=== PATIENT | male | born 1980 | race Caucasian/White ===

== ENCOUNTER 2024-08-29 10:24 | Inpatient (IN) | payer OTHER, SELFPAY ==
[2024-08-29] VITALS (7 sets, daily range): BP systolic 135–175; BP diastolic 79–95; PULSE 109–129; RESP 18–24; TEMP 36.5–38.2; O2SAT 96–100; BMI 43.3
--- NOTE | ~2024-08-29 | CT_ITS ---
EXAMINATION: CT abdomen pelvis w con DATE: 08/29/2024 14:02 INDICATION: Small bowel obstruction. TECHNIQUE: Computed tomography (CT) of the abdomen and pelvis was performed with 100 mL Omnipaque 350 intravenous contrast. Automated exposure control and iterative reconstruction technique were employe d. The dose-length product was 1624.36 mGy-cm. COMPARISON: Abdomen radiographs 08/29/24 FINDINGS: The visualized portions of the lung bases demonstrate mild atelectasis. No pleural effusion . The heart size is normal. No pericardial effusion. The liver, spleen, pancreas, adrenal glands, and left kidney are normal. There is a 1.7 cm cyst in right kidney. There are changes of cholecystectomy . The appendix is normal. The stomach is distended. There are multiple dilated loops of small bowel w ith gradual transition to decompressed bowel near the changes of ventral hernia repair. There is a álvarez praumbilical ventral hernia containing fat superior to the mesh. There are no pathologically enlarged lymph nodes. There is no free intraperitoneal fluid. There is mild thoracic and lumbar spondylosis. IMPRESSION: 1. Dilated small bowel without focal transition point, consistent with adynamic ileus versus partial obstruction. 2. Supraumbilical ventral hernia containing fat. Reviewed, dictated and finalized at location B. L TRADES INSTRUCTOR
--- NOTE | ~2024-08-29 | XR_ITS ---
EXAMINATION: XR abdomen/kub 1V DATE: 08/29/2024 13:28 INDICATION: Abdominal pain. Nausea and vomiting. TECHNIQUE: A supine view of the abdomen on 2 radiographs was obtained. COMPARISON: None. FINDINGS: There are multiple dilated loops of small bowel. The stomach is distended. The colon is nor mal in caliber. Surgical clips in the right upper quadrant are likely from cholecystectomy. Surgical clips may be from hernia repair. IMPRESSION: 1. Dilated small bowel, consistent with small bowel obstruction versus adynamic ileus. Reviewed, dictated and finalized at location B. [employer] ARCHITECT
--- NOTE | ~2024-08-29 | XR_ITS ---
EXAMINATION: XR abdomen obstructive series DATE: 08/30/2024 08:06 INDICATION: Abdominal pain. Dilated bowel. TECHNIQUE: Supine and upright views of the abdomen on 4 radiographs were obtained. COMPARISON: CT abdomen pelvis 08/29/2024 FINDINGS: There are no dilated loops of bowel. There is no free intraperitoneal gas. The nasogastric tube tip is in the stomach. There are surgical clips from ventral hernia repair. Surgical clips in th e right upper quadrant are likely from cholecystectomy. IMPRESSION: 1. Nonobstructive bowel gas pattern. Reviewed, dictated and finalized at location B. ITECTURE DEPARTMENT CHAIR
--- NOTE | ~2024-08-29 | XR_ITS ---
Exam: Abdomen 1V HISTORY: Check NG placement COMPARISON: None. TECHNIQUE: Supine images of the lower chest and upper abdomen FINDINGS: Nasogastric tube extends into the left upper quadrant, presumably within the stomach. IMPRESSION: Nasogastric tube in good position and ready for immediate use. Reviewed, dictated and finalized at location A. INE STEMMER
[2024-08-29 10:56] LABS: Basophils Percent Auto 0.2 % (0.2-1.2); Eosinophils Percent Auto 0.1 % (0-4.4); Hematocrit 50.1 % (42.0-52.0); Immature Granulocyte Absolute 0.05 K/mm3 (0.00-0.031); Immature Granulocyte Percent A 0.4 % (0-0.5); Lymphocytes Absolute Auto 0.38 K/mm3 (0.9-3.2); Lymphocytes Percent Auto 3.3 % (18.3-44.2); Mean Corpuscular HGB Conc 31.9 g/dl (32-36); Mean Corpuscular Hemoglobin 26.2 pg (26-34); Mean Platelet Volume 9.5 fl (7.4-10.4); Monocytes Absolute Auto 0.8 K/mm3 (0.1-0.6); Neutrophils Absolute Auto 10.2 K/mm3 (1.3-6.7); Platelet Count Result 278 k/mm3 (150-375); Red Blood Count 6.11 M/mm3 (4.6-6.20); Red Cell Distribution Width 16.5 % (11.5-14.5); White Blood Count 11.4 K/mm3 (4.5-10.0)
--- NOTE | 2024-08-29 11:05 | PC.NURSE ---
Pt attempted to give urine sample but was unable to go
[2024-08-29 11:06] LABS: Alanine Aminotransferase 30 U/L (6-50); Albumin Level 4.7 g/dL (3.5-5.1); Alkaline Phosphatase 60 U/L (38-126); Anion Gap 15 mmol/L (4-12); Aspartate Amino Transferase 31 U/L (17-59); Bilirubin,Total 1.1 mg/dL (0.2-1.3); Blood Urea Nitrogen 21 mg/dL (9-20); Calcium 8.8 mg/dL (8.4-10.2); Carbon Dioxide 20 mmol/L (22-30); Chloride 104 mmol/L (98-107); Estimated CRCL calculation 128 ml/min; Estimated Glomerular Filt Rate > 60; Glucose 161 mg/dL (65-110); Lipase 36 U/L (23-300); Potassium 4.2 mmol/L (3.4-5.0); Sodium 139 mmol/L (137-145)
[2024-08-29] MEDS: ONDANSETRON INJ 4 MG/2 ML VIAL IV PUSH ×3 (11:13→23:06)
[2024-08-29] MEDS: SODIUM CHLORIDE 0.9% IV 1,000 ML 999 ML IV CONT ×3 (11:13→15:40)
[2024-08-29] MEDS: DICYCLOMINE HCL 10 MG CAPSULE 20 MG PO (11:13)
[2024-08-29] MEDS: FAMOTIDINE 20 MG/2 ML VIAL IV PUSH (11:13)
--- NOTE | 2024-08-29 11:22 | ED_ITS ---
HPI - Nausea/Vomiting/Diarrhea General Chief complaint: Nausea/Vomiting/Diarrhea <Leti Berry APRN - Last Filed: 08/29/24 17:13> Stated complaint: flu symptoms <Leti Berry APRN - Last Filed: 08/29/24 17:13> Time Seen by Provider: 08/29/24 10:36 <Leti Berry APRN - Last Filed: 08/29/24 17:13> History of Present Illness HPI Narrative: Patient is a 44-year-old male who presents to the ER with complaints of abdominal pain, nausea, vomiting, diarrhea this started last night at approximately 9:00 p.m. He reports he was awake every 30-60 minutes last night vomiting. Patient reports his son was recently ill with similar symptoms. He currently endorses abdominal pain, weakness, dizziness. Patient reports he has a history diabetes and GERD. He denies any chest pain, shortness off breath, wheezing, recent fevers, urinary symptoms. <Leti Berry APRN - Last Filed: 08/29/24 17:13> Related Data Home medications: Home Medications ?Medication ?Instructions ?Recorded ?Confirmed ?Last Taken ?Type ferrous sulfate 325 mg (65 mg 325 mg PO DAILY 10/03/21 08/29/24 Unknown History iron) tablet <Leti Berry APRN - Last Filed: 08/29/24 17:13> Allergies/Adverse reactions: Allergies Allergy/AdvReac Type Severity Reaction Status Date / Time No Known Allergies Allergy Verified 08/29/24 11:14 <Leti Berry APRN - Last Filed: 08/29/24 17:13> Review of Systems 2 Review of Systems: All systems reviewed & are unremarkable except as noted in HPI and below <Leti Berry APRN - Last Filed: 08/29/24 17:13> PMFSH Past Medical History Medical History: Medical History IBS (irritable bowel syndrome) Chronic GERD Allergies Obesity due to excess calories History of postoperative nausea and vomiting Anesthesia complication Hx of difficulty waking up after anesthesia Sleep apnea Low iron Neck pain Nerve pain Mild acid reflux Anxiety <Leti Berry APRN - Last Filed: 08/29/24 17:13> Surgical History Surgical History: Surgical History History of cholecystectomy (~01/04/13) History of hernia repair (~09/18/17) History of hernia repair (~06/09/18) <Leti Berry, CLIENT PROJECT COORDINATOR - Last Filed: 08/29/24 17:13> Family History Family History: Family History Grandparent Brain cancer <Leti Berry, CLIENT PROJECT COORDINATOR - Last Filed: 08/29/24 17:13> Social History Social History: Social History Smoking status: Never smoker Lack of Transportation: No Lack of Food: Never True Current Housing: I Have Housing Concerned About Future Housing: No Difficulty Paying Gas/Electric Bills: No Difficulty Paying for Meds: No Currently Unemployed: No Education: Bachelor's Degree Difficulty w/ Childcare or Family Care: No Living arrangements: with family Occupation/Education: occupation Additional occupation/education comments: [employer] Gender identity (if verbalized by the patient): Male <Leti Berry, CLIENT PROJECT COORDINATOR - Last Filed: 08/29/24 17:13> Exam 2 Narrative: GENERAL: Well appearing, obese, non-toxic, in no acute distress. HEAD: Normocephalic, atraumatic. NECK: Supple. No adenopathy, no masses. RESPIRATORY: Airway patent, respirations nonlabored. Clear to auscultation bilaterally, no rales, rhonchi, wheezing. CARDIOVASCULAR: Regular rate and rhythm without murmurs, rubs, or gallops. Peripheral pulses 2+ and equal bilaterally. ABDOMINAL: Soft, nontender, nondistended, no hepatosplenomegaly. Normoactive BS. MUSCULOSKELETAL: Moves all extremities. Strength/ROM intact without gross deformities. SKIN: Warm, dry, normal color. No rashes. NEURO: A&O X3. Speech clear. Cranial nerves II-XII grossly intact. Steady gait. No ataxic movements. PSYCHIATRIC: Appropriate mood and affect. Normal interaction. <Leti Berry, CLIENT PROJECT COORDINATOR - Last Filed: 08/29/24 17:13> Course OVEN STRIPPER/PA Physician Supervision For this patient encounter, I reviewed the OVEN STRIPPER or PA documentation, treatment plan, and medical decision making; and I had [id number] time with this patient. <Gabe Georges MD - Last Filed: 08/29/24 18:43> Vital Signs Vital signs: Vital Signs Temperature 97.7 F 08/29/24 10:37 Pulse Rate 109 H 08/29/24 10:37 Respiratory Rate 18 08/29/24 10:37 Blood Pressure 174/85 H 08/29/24 10:37 Pulse Oximetry 97 08/29/24 10:37 Oxygen Delivery Room Air 08/29/24 10:37 Temperature 98.9 F 08/29/24 16:48 Pulse Rate 117 H 08/29/24 16:38 Respiratory Rate 18 08/29/24 16:38 Blood Pressure 175/88 H 08/29/24 16:38 Pulse Oximetry 100 08/29/24 16:38 Oxygen Delivery Room Air 08/29/24 10:37 <Leti Berry, CLIENT PROJECT COORDINATOR - Last Filed: 08/29/24 17:13> Vital Signs Temperature 97.7 F 08/29/24 10:37 Pulse Rate 109 H 08/29/24 10:37 Respiratory Rate 18 08/29/24 10:37 Blood Pressure 174/85 H 08/29/24 10:37 Pulse Oximetry 97 08/29/24 10:37 Oxygen Delivery Room Air 08/29/24 10:37 Temperature 98.9 F 08/29/24 16:48 Pulse Rate 117 H 08/29/24 16:38 Respiratory Rate 18 08/29/24 16:38 Blood Pressure 175/88 H 08/29/24 16:38 Pulse Oximetry 100 08/29/24 16:38 Oxygen Delivery Room Air 08/29/24 10:37 <Gabe Georges MD - Last Filed: 08/29/24 18:43> MDM - Nausea/Vomiting/Diarrhea MDM Narrative Medical decision making narrative: Patient is a 44-year-old male who presents to the ER with complaints of abdominal pain, nausea, vomiting, diarrhea this started last night at approximately 9:00 p.m. He reports he was awake every 30-60 minutes last night vomiting. Patient reports his son was recently ill with similar symptoms. He currently endorses abdominal pain, weakness, dizziness. Patient reports he has a history diabetes and GERD. He denies any chest pain, shortness off breath, wheezing, recent fevers, urinary symptoms. Labs Ordered: CBC, CMP, lipase, influenza/RSV/COVID swab, UA Imaging Ordered: KUB, CT abdomen pelvis Results: Patient's abdominal CT scan showed 1. Dilated small bowel without focal transition point, consistent with adynamic ileus versus partial obstruction. 2. Supraumbilical ventral hernia containing fat. Diagnosis: Adynamic ileus versus partial obstruction of small bowel Consults: General surgery-Dr. Palma advised that it will surgery could be consulted if patient is admitted to the hospital. Patient Education/Shared MDM: Results of KUB and CT scan shared with the patient. It is recommended patient be admitted to the hospital for IV rehydration. 1520-Spoke with hospitalist who agreed with pt's admission to the hospital. She advised patient receive another 1L Normal Saline IV bolus and have an NG placed to low intermittent suction. Spoke with patient and his who verbalized understanding and are in agreement with plan of admission. <Leti Berry APRN - Last Filed: 08/29/24 17:13> Differential Diagnosis Differential diagnosis: Likely food poisoning, gastroenteritis, drug-induced nausea and vomiting, dehydration and other (small bowel obstruction) <Leti Berry APRN - Last Filed: 08/29/24 17:13> Lab Data Attestation: I reviewed the patient's lab results. <Leti Berry APRN - Last Filed: 08/29/24 17:13> Result diagrams: 08/29/24 10:48 08/29/24 10:48 <Leti Berry CLIENT PROJECT COORDINATOR - Last Filed: 08/29/24 17:13> Labs: Lab Results 08/29/24 08/29/24 08/29/24 Range/Units 10:48 11:12 11:41 WBC 11.4 H (4.5-10.0) K/mm3 RBC 6.11 (4.6-6.20) M/mm3 Hgb 16.0 (14.0-18.0) g/dL Hct 50.1 (42.0-52.0) % MCV 82.0 (80-100) fl MCH 26.2 (26-34) pg MCHC 31.9 L (32-36) g/dl RDW 16.5 H (11.5-14.5) % Plt Count 278 (150-375) k/mm3 MPV 9.5 (7.4-10.4) fl Immature Gran % (Auto) 0.4 (0-0.5) % Neut % (Auto) 89.0 H (45.5-73.1) % Lymph % (Auto) 3.3 L (18.3-44.2) % [place] % (Auto) 7.0 (2.6-8.5) % Eos % (Auto) 0.1 (0-4.4) % Baso % (Auto) 0.2 (0.2-1.2) % Lymph # (Auto) 0.38 L (0.9-3.2) K/mm3 [place] # (Auto) 0.8 H (0.1-0.6) K/mm3 Eos # (Auto) 0.0 (0-0.3) K/mm3 Baso # (Auto) 0.0 (0.0-0.1) K/mm3 Abs Immat Gran (auto) 0.05 H (0.00-0.031) K/mm3 Absolute Neuts (auto) 10.2 H (1.3-6.7) K/mm3 Absolute Nucleated RBC 0.000 (0.0-0.012) K/mm3 Nucleated RBC % 0.0 (0.0-0.2) % Sodium 139 (137-145) mmol/L Potassium 4.2 (3.4-5.0) mmol/L Chloride 104 (98-107) mmol/L Carbon Dioxide 20 L (22-30) mmol/L Anion Gap 15 H (4-12) mmol/L BUN 21 H (9-20) mg/dL Creatinine 0.90 (0.7-1.3) mg/dL Estim Creat Clear Calc 128 ml/min Estimated GFR > 60 (59 - ) Glucose 161 H (65-110) mg/dL Lactic Acid (0.7-2.0) mmol/L Calcium 8.8 (8.4-10.2) mg/dL Total Bilirubin 1.1 (0.2-1.3) mg/dL AST 31 (17-59) U/L ALT 30 (6-50) U/L Alkaline Phosphatase 60 (38-126) U/L Total Protein 8.0 (6.3-8.2) g/dL Albumin 4.7 (3.5-5.1) g/dL Lipase 36 (23-300) U/L Urine Color Dark yellow (Yellow) Urine Appearance Clear (Clear) Urine pH 5.5 (5.0-9.0) Ur Specific [place] 1.035 (1.001-1.035) Urine Protein 2+ H (Negative) mg/dL Urine Glucose (UA) Negative (Negative) mg/dL Urine Ketones Trace H (Negative) mg/dL Ur Blood (Man) Negative (Negative) Urine Nitrate Negative (Negative) Urine Bilirubin Negative (Negative) Urine Urobilinogen 1.0 (<2.0) mg/dL Leukocyte Esterase Rfl Negative (Negative) CARLOS/UL Urine RBC 0-2 (0-2) /hpf Urine WBC 0-5 (0-3) /hpf Ur Squamous Epith Cells None seen (Few) /hpf Urine Bacteria None seen /hpf Urine Casts 0-2 Influenza A (RT-PCR) Negative (Negative) Influenza B (RT-PCR) Negative (Negative) RSV (RT-PCR) Negative (Negative) SARS-CoV-2 RNA (RT-PCR) Negative (Negative) 08/29/24 Range/Units 16:40 WBC (4.5-10.0) K/mm3 RBC (4.6-6.20) M/mm3 Hgb (14.0-18.0) g/dL Hct (42.0-52.0) % MCV (80-100) fl MCH (26-34) pg MCHC (32-36) g/dl RDW (11.5-14.5) % Plt Count (150-375) k/mm3 MPV (7.4-10.4) fl Immature Gran % (Auto) (0-0.5) % Neut % (Auto) (45.5-73.1) % Lymph % (Auto) (18.3-44.2) % [place] % (Auto) (2.6-8.5) % Eos % (Auto) (0-4.4) % Baso % (Auto) (0.2-1.2) % Lymph # (Auto) (0.9-3.2) K/mm3 [place] # (Auto) (0.1-0.6) K/mm3 Eos # (Auto) (0-0.3) K/mm3 Baso # (Auto) (0.0-0.1) K/mm3 Abs Immat Gran (auto) (0.00-0.031) K/mm3 Absolute Neuts (auto) (1.3-6.7) K/mm3 Absolute Nucleated RBC (0.0-0.012) K/mm3 Nucleated RBC % (0.0-0.2) % Sodium (137-145) mmol/L Potassium (3.4-5.0) mmol/L Chloride (98-107) mmol/L Carbon Dioxide (22-30) mmol/L Anion Gap (4-12) mmol/L BUN (9-20) mg/dL Creatinine (0.7-1.3) mg/dL Estim Creat Clear Calc ml/min Estimated GFR (59 - ) Glucose (65-110) mg/dL Lactic Acid 2.1 H (0.7-2.0) mmol/L Calcium (8.4-10.2) mg/dL Total Bilirubin (0.2-1.3) mg/dL AST (17-59) U/L ALT (6-50) U/L Alkaline Phosphatase (38-126) U/L Total Protein (6.3-8.2) g/dL Albumin (3.5-5.1) g/dL Lipase (23-300) U/L Urine Color (Yellow) Urine Appearance (Clear) Urine pH (5.0-9.0) Ur Specific [place] (1.001-1.035) Urine Protein (Negative) mg/dL Urine Glucose (UA) (Negative) mg/dL Urine Ketones (Negative) mg/dL Ur Blood (Man) (Negative) Urine Nitrate (Negative) Urine Bilirubin (Negative) Urine Urobilinogen (<2.0) mg/dL Leukocyte Esterase Rfl (Negative) CARLOS/UL Urine RBC (0-2) /hpf Urine WBC (0-3) /hpf Ur Squamous Epith Cells (Few) /hpf Urine Bacteria /hpf Urine Casts Influenza A (RT-PCR) (Negative) Influenza B (RT-PCR) (Negative) RSV (RT-PCR) (Negative) SARS-CoV-2 RNA (RT-PCR) (Negative) <Leti Bean Kristi, CLIENT PROJECT COORDINATOR - Last Filed: 08/29/24 17:13> Lab Results 08/29/24 08/29/24 08/29/24 Range/Units 10:48 11:12 11:41 WBC 11.4 H (4.5-10.0) K/mm3 RBC 6.11 (4.6-6.20) M/mm3 Hgb 16.0 (14.0-18.0) g/dL Hct 50.1 (42.0-52.0) % MCV 82.0 (80-100) fl MCH 26.2 (26-34) pg MCHC 31.9 L (32-36) g/dl RDW 16.5 H (11.5-14.5) % Plt Count 278 (150-375) k/mm3 MPV 9.5 (7.4-10.4) fl Immature Gran % (Auto) 0.4 (0-0.5) % Neut % (Auto) 89.0 H (45.5-73.1) % Lymph % (Auto) 3.3 L (18.3-44.2) % [place] % (Auto) 7.0 (2.6-8.5) % Eos % (Auto) 0.1 (0-4.4) % Baso % (Auto) 0.2 (0.2-1.2) % Lymph # (Auto) 0.38 L (0.9-3.2) K/mm3 [place] # (Auto) 0.8 H (0.1-0.6) K/mm3 Eos # (Auto) 0.0 (0-0.3) K/mm3 Baso # (Auto) 0.0 (0.0-0.1) K/mm3 Abs Immat Gran (auto) 0.05 H (0.00-0.031) K/mm3 Absolute Neuts (auto) 10.2 H (1.3-6.7) K/mm3 Absolute Nucleated RBC 0.000 (0.0-0.012) K/mm3 Nucleated RBC % 0.0 (0.0-0.2) % Sodium 139 (137-145) mmol/L Potassium 4.2 (3.4-5.0) mmol/L Chloride 104 (98-107) mmol/L Carbon Dioxide 20 L (22-30) mmol/L Anion Gap 15 H (4-12) mmol/L BUN 21 H (9-20) mg/dL Creatinine 0.90 (0.7-1.3) mg/dL Estim Creat Clear Calc 128 ml/min Estimated GFR > 60 (59 - ) Glucose 161 H (65-110) mg/dL Lactic Acid (0.7-2.0) mmol/L Calcium 8.8 (8.4-10.2) mg/dL Total Bilirubin 1.1 (0.2-1.3) mg/dL AST 31 (17-59) U/L ALT 30 (6-50) U/L Alkaline Phosphatase 60 (38-126) U/L Total Protein 8.0 (6.3-8.2) g/dL Albumin 4.7 (3.5-5.1) g/dL Lipase 36 (23-300) U/L Urine Color Dark yellow (Yellow) Urine Appearance Clear (Clear) Urine pH 5.5 (5.0-9.0) Ur Specific [place] 1.035 (1.001-1.035) Urine Protein 2+ H (Negative) mg/dL Urine Glucose (UA) Negative (Negative) mg/dL Urine Ketones Trace H (Negative) mg/dL Ur Blood (Man) Negative (Negative) Urine Nitrate Negative (Negative) Urine Bilirubin Negative (Negative) Urine Urobilinogen 1.0 (<2.0) mg/dL Leukocyte Esterase Rfl Negative (Negative) CARLOS/UL Urine RBC 0-2 (0-2) /hpf Urine WBC 0-5 (0-3) /hpf Ur Squamous Epith Cells None seen (Few) /hpf Urine Bacteria None seen /hpf Urine Casts 0-2 Influenza A (RT-PCR) Negative (Negative) Influenza B (RT-PCR) Negative (Negative) RSV (RT-PCR) Negative (Negative) SARS-CoV-2 RNA (RT-PCR) Negative (Negative) 08/29/24 Range/Units 16:40 WBC (4.5-10.0) K/mm3 RBC (4.6-6.20) M/mm3 Hgb (14.0-18.0) g/dL Hct (42.0-52.0) % MCV (80-100) fl MCH (26-34) pg MCHC (32-36) g/dl RDW (11.5-14.5) % Plt Count (150-375) k/mm3 MPV (7.4-10.4) fl Immature Gran % (Auto) (0-0.5) % Neut % (Auto) (45.5-73.1) % Lymph % (Auto) (18.3-44.2) % [place] % (Auto) (2.6-8.5) % Eos % (Auto) (0-4.4) % Baso % (Auto) (0.2-1.2) % Lymph # (Auto) (0.9-3.2) K/mm3 [place] # (Auto) (0.1-0.6) K/mm3 Eos # (Auto) (0-0.3) K/mm3 Baso # (Auto) (0.0-0.1) K/mm3 Abs Immat Gran (auto) (0.00-0.031) K/mm3 Absolute Neuts (auto) (1.3-6.7) K/mm3 Absolute Nucleated RBC (0.0-0.012) K/mm3 Nucleated RBC % (0.0-0.2) % Sodium (137-145) mmol/L Potassium (3.4-5.0) mmol/L Chloride (98-107) mmol/L Carbon Dioxide (22-30) mmol/L Anion Gap (4-12) mmol/L BUN (9-20) mg/dL Creatinine (0.7-1.3) mg/dL Estim Creat Clear Calc ml/min Estimated GFR (59 - ) Glucose (65-110) mg/dL Lactic Acid 2.1 H (0.7-2.0) mmol/L Calcium (8.4-10.2) mg/dL Total Bilirubin (0.2-1.3) mg/dL AST (17-59) U/L ALT (6-50) U/L Alkaline Phosphatase (38-126) U/L Total Protein (6.3-8.2) g/dL Albumin (3.5-5.1) g/dL Lipase (23-300) U/L Urine Color (Yellow) Urine Appearance (Clear) Urine pH (5.0-9.0) Ur Specific [place] (1.001-1.035) Urine Protein (Negative) mg/dL Urine Glucose (UA) (Negative) mg/dL Urine Ketones (Negative) mg/dL Ur Blood (Man) (Negative) Urine Nitrate (Negative) Urine Bilirubin (Negative) Urine Urobilinogen (<2.0) mg/dL Leukocyte Esterase Rfl (Negative) CARLOS/UL Urine RBC (0-2) /hpf Urine WBC (0-3) /hpf Ur Squamous Epith Cells (Few) /hpf Urine Bacteria /hpf Urine Casts Influenza A (RT-PCR) (Negative) Influenza B (RT-PCR) (Negative) RSV (RT-PCR) (Negative) SARS-CoV-2 RNA (RT-PCR) (Negative) <Gabe Georges MD - Last Filed: 08/29/24 18:43> Imaging Data Attestation: I personally reviewed and interpreted this imaging study as follows: < Leti Berry APRN - Last Filed: 08/29/24 17:13> Radiologist's impression: Impressions Abdomen X-Ray 08/29/24 13:30 IMPRESSION: 1. Dilated small bowel, consistent with small bowel obstruction versus adynamic ileus. Abdomen/Pelvis CT 08/29/24 14:06 IMPRESSION: 1. Dilated small bowel without focal transition point, consistent with adynamic ileus versus partial obstruction. 2. Supraumbilical ventral hernia containing fat. <Leti Berry APRN - Last Filed: 08/29/24 17:13> Discharge Plan Discharge Clinical Impression: Partial obstruction of small intestine, Gastroenteritis, Acute dehydration <Leti Berry APRN - Last Filed: 08/29/24 17:13> Patient Disposition: Still a Patient <Leti Berry APRN - Last Filed: 08/29/24 17:13> Condition: Stable <Leti Berry APRN - Last Filed: 08/29/24 17:13>
[2024-08-29 11:49] LABS: Add Urine Microscopic? YES; Appearance Urine Clear (Clear); Bacteria Urine None Seen /hpf; Bilirubin Urine Negative (Negative); Blood Urine Negative (Negative); Color Urine Dark Yellow (Yellow); Glucose Urine UA Negative (Negative); Ketones Urine Trace mg/dL (Negative); Leukocyte Esterase Ur Negative LEU/UL (Negative); Nitrate Urine Negative (Negative); Non Pathogenic Casts 0-2; Protein Urine 2+ mg/dL (Negative); RBC Urine 0-2 /hpf (0-2); Specific Grav Ur 1.035 (1.001-1.035); Squamous Epithelial Cell Urine None Seen /hpf (Few); WBC Urine 0-5 /hpf (0-3); pH Urine 5.5 (5.0-9.0)
[2024-08-29 11:54] LABS: Influenza A QL RT-PCR Negative (Negative); Influenza B QL RT-PCR Negative (Negative); RSV RNA, RT-PCR Negative (Negative); SARS-CoV-2 RNA PCR Negative (Negative)
[2024-08-29] MEDS: KETOROLAC 15 MG/ML VIAL (*BKC) IV PUSH (13:11)
[2024-08-29] MEDS: diphenhydrAMINE HCl INJ 50 MG/ML VIAL 25 MG IV PUSH (13:11)
[2024-08-29] MEDS: METOCLOPRAMIDE HCL INJ 10 MG/2 ML VIAL IV PUSH (13:11)
[2024-08-29] MEDS: HYDROmorphone HCL INJ (*CRX) 1 MG/ML SYR 0.5 MG IV PUSH (14:10)
[2024-08-29] MEDS: LORazepam INJ (*CRX) 2 MG/ML VIAL 0.5 MG IV PUSH (15:39)
[2024-08-29] MEDS: HYDROmorphone HCL INJ (*CRX) 1 MG/ML SYR IV PUSH (15:39)
--- NOTE | 2024-08-29 15:57 | P.CONGS_ITS ---
Assessment and Plan Assessment and plan (1) Gastroenteritis: Code(s): K52.9 - Noninfective gastroenteritis and colitis, unspecified Status: Acute Assessment and Plan: The patient presented with abdominal pain, vomiting, and diarrhea. CT scan shows dilated small bowel with no definitive transition point, consistent with ileus versus partial small bowel obstruction. His son recently had what sounds like gastroenteritis over the past few days. It seems more likely that he has gastroenteritis rather than a small-bowel obstruction, although he is also complaining of bloody stools. He is hemodynamically stable and no diffuse peritoneal signs on exam. We would recommend to continue with conservative management with NG tube decompression, bowel rest, IV fluids, and analgesics as needed. Will continue to follow with serial abdominal exams and imaging. (2) Acute dehydration: Code(s): E86.0 - Dehydration Status: Acute Assessment and Plan: Secondary to vomiting and diarrhea. Continue IV fluids and monitor labs. (3) GI bleed: Code(s): K92.2 - Gastrointestinal hemorrhage, unspecified Status: Acute Assessment and Plan: Report of blood in his stool today that has been persistent. He has a history of hemorrhoids, but reports this is a significant amount of blood compared to when he has hemorrhoidal bleeding. Hemoglobin 16 on admission and he is hemodynamically stable. He appears to have external hemorrhoids on exam that do not appear to be actively bleeding. May need to consider GI consultation if persists. (4) Prediabetes: Code(s): R73.03 - Prediabetes Status: Acute (5) IBS (irritable bowel syndrome): Code(s): K58.9 - Irritable bowel syndrome, unspecified Status: Acute (6) Ventral hernia without obstruction or gangrene: Code(s): K43.9 - Ventral hernia without obstruction or gangrene Status: Acute Assessment and Plan: Ventral hernia noted on CT containing fat. He has a fascial defect superior into the left of his supraumbilical scar from his previous ventral hernia repairs. This is soft and reportedly asymptomatic. He notices a bulge intermittently at home, but no obvious bulge on exam today. This is an incidental finding and not the reason for his acute admission. Would recommend to continue monitoring this for now and could be followed up as an outpatient if he develops symptoms or wants to discuss any surgical repair options. Plan I have discussed the patient's case and plan of care with Dr. Palma. Thank you for allowing us to see the patient in consultation and we will continue to follow along with you. History of Present Illness Consult details Consult date: 08/29/24 Reason for consult: other (Partial small-bowel obstruction versus ileus) Requesting physician: Leti Berry APRN Narrative: This is a 44-year-old man with PMH of hyperlipidemia, anxiety/depression, prediabetes, GERD, and IBS, who presented to the ED today with complaints of abdominal pain, vomiting, and diarrhea. He reports his son had a GI illness with vomiting and diarrhea over the past few days. Last night around 9:00 p.m., he developed periumbilical abdominal pain and nausea. He then had multiple episodes of vomiting and was up through the night with vomiting and diarrhea. He reports multiple episodes of bloody diarrhea. He reports bright red blood. He has a history of hemorrhoids, but reports this is more blood than he notices with his typical hemorrhoids. Denies bloody emesis. Due to the abdominal pain and bloody stools, he presented to the ED today. In the ED, he is afebrile and tachycardic with a heart rate of 109. His blood pressure is elevated at 174/85. [place] [address], hemoglobin 16.0, hematocrit 50.1, BUN 21, creatinine 0.9. UA negative for UTI. Influenza a/B, RSV, and COVID negative. CT scan of the abdomen and pelvis with IV contrast showed dilated small bowel without focal transition point, consistent with adynamic ileus versus partial obstruction. Also noted is a supraumbilical ventral hernia containing fat with changes of a ventral hernia repair and cholecystectomy. Previous abdominal surgeries include 2 previous ventral hernia repairs with mesh and laparoscopic cholecystectomy. Our service has been consulted for partial small-bowel obstruction. He is now seen in the ED. He continues to have significant nausea and dry heaving in the ED. NG tube has been ordered. He denies previous small-bowel obstructions. He reports having bloody stools in the ED as well. When describing his pain, he reports his pain is still just above the umbilicus but he feels diffusely tender. He reports pain is aggravated by any movement. He reports having multiple colonoscopies in the past, and he believes his most recent colonoscopy was in the last 5 years, which was reportedly unremarkable. Review of Systems 2 Review of Systems: All systems reviewed & are unremarkable except as noted in HPI and below PMFSH Past Medical History Medical History IBS (irritable bowel syndrome) Chronic GERD Allergies Obesity due to excess calories History of postoperative nausea and vomiting Anesthesia complication Hx of difficulty waking up after anesthesia Sleep apnea Low iron Neck pain Nerve pain Mild acid reflux Anxiety Surgical History Surgical History History of cholecystectomy (~01/04/13) History of hernia repair (~09/18/17) History of hernia repair (~06/09/18) Family History Family History Grandparent Brain cancer Social History Social History Smoking status: Never smoker Lack of Transportation: No Lack of Food: Never True Current Housing: I Have Housing Concerned About Future Housing: No Difficulty Paying Gas/Electric Bills: No Difficulty Paying for Meds: No Currently Unemployed: No Education: Bachelor's Degree Difficulty w/ Childcare or Family Care: No Living arrangements: with family Occupation/Education: occupation Additional occupation/education comments: [employer] Gender identity (if verbalized by the patient): Male Meds Home Medications and Allergies Home Medications ?Medication ?Instructions ?Recorded ?Confirmed ?Type ferrous sulfate 325 mg (65 mg 325 mg PO DAILY 10/03/21 07/25/24 History iron) tablet folic acid 1 mg tablet 1 mg PO DAILY #90 tabs 02/22/24 07/25/24 Rx metformin 500 mg tablet,extended See Rx Instructions .Route 05/18/24 07/25/24 Rx release 24 hr .COMPLEX #90 tabs testosterone cypionate 200 mg/mL 100 mg (0.5 mL) IM WEEKLY #1 mL 05/23/24 07/25/24 Rx intramuscular oil sertraline 100 mg tablet 200 mg (2 x 100 mg) PO DAILY #180 07/11/24 07/25/24 Rx tabs pravastatin 40 mg tablet See Rx Instructions .Route 08/01/24 Rx .COMPLEX #90 tabs cyclobenzaprine 5 mg tablet See Rx Instructions .Route 08/29/24 Rx .COMPLEX #30 tabs omeprazole 20 mg capsule,delayed See Rx Instructions .Route 08/29/24 Rx release .COMPLEX #90 caps Allergies Allergy/AdvReac Type Severity Reaction Status Date / Time No Known Allergies Allergy Verified 08/29/24 11:14 Vital Signs Vital Signs - 24 hr 08/29/24 10:37 08/29/24 13:17 08/29/24 14:13 Temperature 97.7 F Pulse Rate 109 H 110 H 110 H Respiratory Rate 18 18 20 Blood Pressure 174/85 H 156/95 H 158/79 H Pulse Oximetry 97 97 98 Oxygen Delivery Room Air Exam 2 Const: General: tired appearing and uncomfortable Nutritional Appearance: o bese Orientation/consciousness: patient oriented x3 HENMT: Head: normocephalic and atraumatic Ears: hearing grossly normal bilaterally Eyes: General: appearance normal, both eyes and all related structures P upils: Equal, round and reactive pupils present Neck: Neck: normal visual inspection and full ROM Resp: Effort & Inspection: no respiratory distress Auscultation: clear to auscultation bilaterally Cardio: Rate: tachycardic Rhythm: regular rhythm Peripheral pulses: P eripheral pulses 2+ throughout GI: Inspection: distended, obesity and scar (horizontal supraumbilical scar from previous hernia repairs) GI Palp: Yes Soft to palpation, Yes Tenderness to palpation present (GI) (diffusely tender, no focal tenderness), No Guarding due to palpation present (GI), Yes No hepatosplenomegaly present, Yes Hernia present (fascial defect superior and to the left of the supraumbilical scar, soft) ventral and No Rebound tenderness present Auscultation: normal bowel sounds Other: Digital rectal exam deferred due to patient's discomfort and dry heaving, although with visual inspection, there is dried blood around the anal verge with what appears to be external hemorrhoids on the right posterior and anterior location, no active bleeding noted. Skin: General skin exam: normal color Neuro: General: moves all extremities and no focal motor deficits Speech: n ormal speech Motor exam (neuro): 5/5 motor strength present throughout Extrem: General: normal to inspection and no edema Psych: Mental Status: mental status grossly normal Attitude: cooperative Insight: Good insight present (Psych) Judgement: Good judgement present (Psych) Results Labs 08/29/24 10:48 08/29/24 10:48 Labs: Abnormal lab results 08/29/24 08/29/24 Range/Units 10:48 11:41 WBC 11.4 H (4.5-10.0) K/mm3 MCHC 31.9 L (32-36) g/dl RDW 16.5 H (11.5-14.5) % Neut % (Auto) 89.0 H (45.5-73.1) % Lymph % (Auto) 3.3 L (18.3-44.2) % Lymph # (Auto) 0.38 L (0.9-3.2) K/mm3 Wise # (Auto) 0.8 H (0.1-0.6) K/mm3 Abs Immat Gran (auto) 0.05 H (0.00-0.031) K/mm3 Absolute Neuts (auto) 10.2 H (1.3-6.7) K/mm3 Carbon Dioxide 20 L (22-30) mmol/L Anion Gap 15 H (4-12) mmol/L BUN 21 H (9-20) mg/dL Glucose 161 H (65-110) mg/dL Urine Protein 2+ H (Negative) mg/dL Urine Ketones Trace H (Negative) mg/dL Diabetes panel 08/29/24 Range/Units 10:48 Sodium 139 (137-145) mmol/L Potassium 4.2 (3.4-5.0) mmol/L Chloride 104 (98-107) mmol/L Carbon Dioxide 20 L (22-30) mmol/L BUN 21 H (9-20) mg/dL Creatinine 0.90 (0.7-1.3) mg/dL Glucose 161 H (65-110) mg/dL Calcium 8.8 (8.4-10.2) mg/dL AST 31 (17-59) U/L ALT 30 (6-50) U/L Alkaline Phosphatase 60 (38-126) U/L Total Protein 8.0 (6.3-8.2) g/dL Albumin 4.7 (3.5-5.1) g/dL Calcium panel 08/29/24 Range/Units 10:48 Calcium 8.8 (8.4-10.2) mg/dL Albumin 4.7 (3.5-5.1) g/dL Pituitary panel 08/29/24 Range/Units 10:48 Sodium 139 (137-145) mmol/L Potassium 4.2 (3.4-5.0) mmol/L Chloride 104 (98-107) mmol/L Carbon Dioxide 20 L (22-30) mmol/L BUN 21 H (9-20) mg/dL Creatinine 0.90 (0.7-1.3) mg/dL Glucose 161 H (65-110) mg/dL Calcium 8.8 (8.4-10.2) mg/dL Adrenal panel 08/29/24 Range/Units 10:48 Sodium 139 (137-145) mmol/L Potassium 4.2 (3.4-5.0) mmol/L Chloride 104 (98-107) mmol/L Carbon Dioxide 20 L (22-30) mmol/L BUN 21 H (9-20) mg/dL Creatinine 0.90 (0.7-1.3) mg/dL Glucose 161 H (65-110) mg/dL Calcium 8.8 (8.4-10.2) mg/dL Total Bilirubin 1.1 (0.2-1.3) mg/dL AST 31 (17-59) U/L ALT 30 (6-50) U/L Alkaline Phosphatase 60 (38-126) U/L Total Protein 8.0 (6.3-8.2) g/dL Albumin 4.7 (3.5-5.1) g/dL All other labs normal. Imaging Additional studies: ITS Impressions Abdomen X-Ray 08/29/24 13:30 IMPRESSION: 1. Dilated small bowel, consistent with small bowel obstruction versus adynamic ileus. Abdomen/Pelvis CT 08/29/24 14:06 IMPRESSION: 1. Dilated small bowel without focal transition point, consistent with adynamic ileus versus partial obstruction. 2. Supraumbilical ventral hernia containing fat.
[2024-08-29] MEDS: BENZOCAINE/TETRACAINE SPRAY (*SP) 56 ML AEROSOL 1 SPRAY (16:07)
--- NOTE | 2024-08-29 17:00 | PM.IMHP ---
H&P: HPI History of Present Illness Date/Time: 08/29/24 17:00 Chief Complaint: Nausea, vomiting, diarrhea. Narrative: This is a very pleasant 44-year-old male with hyperlipidemia, prediabetes, obstructive sleep apnea, irritable bowel syndrome, hemorrhoids, and history of cholecystectomy and hernia repairs who presented to the emergency department via private vehicle for evaluation of nausea, vomiting, and diarrhea. The patient provides the following history. His symptoms started about 21:00 last evening with generalized abdominal discomfort, nausea, dry heaves, and loose watery stools every 30 to 60 minutes. He also reports chills, sweats, and subjective fever. He also reports a small amounts of bright red blood admixed with the stools which he attributes to his known hemorrhoids. His son had similar symptoms over the weekend. He denies recent antibiotic use and travel. No chest pain or shortness of breath. In the ED: He has been tachycardic since arrival with a low-grade temperature of 100.7? F. blood pressure has been stable if not a bit elevated. Labs were significant for WBC count of 11.4, carbon dioxide 20, anion gap 15, BUN 21, creatinine 0.90, glucose 161, lactic acid 2.1. Urinalysis was positive for 2+ protein and trace ketones. He tested negative for influenza, RSV, and COVID. CT head of the abdomen pelvis showed dilated small bowel without focal transition point consistent with adynamic ileus versus partial obstruction and a supraumbilical ventral hernia containing fat. He received 3 L IV fluid in several different antiemetics but continued to have nausea. He then began vomiting and an NG tube was placed and he is feeling a bit better at this time. Review of Systems Review of Systems: 12 systems were reviewed and are negative except for as per HPI. ON LICENSE OF [facility] Past Medical History Medical History (Updated 08/29/24 @ 20:44 by Nisha Sigala PA-C) Prediabetes Obstructive sleep apnea on CPAP Irritable bowel syndrome Chronic GERD Allergies Obesity due to excess calories Anesthesia complication hx of difficulty waking up after anesthesia Low iron Anxiety Surgical History Surgical History (Updated 08/29/24 @ 20:33 by Nisha Sigala PA-C) History of cholecystectomy (~01/04/13) History of hernia repair (~09/18/17) History of hernia repair (~06/09/18) Family History Family History Grandparent Brain cancer Social History Social History (Updated 08/29/24 @ 20:34 by Nisha Sigala PA-C) Social History: Surrogate medical decision maker: Amber Mendes, spouse. Code status: Full code. Smoking status: Former smoker Do You Feel Safe in your Home?: Yes Lack of Transportation: No Lack of Food: Never True Current Housing: I Have Housing Concerned About Future Housing: No Difficulty Paying Gas/Electric Bills: No Difficulty Paying for Meds: No Currently Unemployed: No Education: Bachelor's Degree Difficulty w/ Childcare or Family Care: No Living arrangements: with family Occupation/Education: occupation Additional occupation/education comments: [employer] Extremeties: No edema. Spiritual care concerns: No Meds Home Medications and Allergies Home Medications ?Medication ?Instructions ?Recorded ?Confirmed ?Type ferrous sulfate 325 mg (65 mg 325 mg PO DAILY 10/03/21 08/29/24 History iron) tablet folic acid 1 mg tablet 1 mg PO DAILY #90 tabs 02/22/24 08/29/24 Rx metformin 500 mg tablet,extended See Rx Instructions .Route 05/18/24 08/29/24 Rx release 24 hr .COMPLEX #90 tabs testosterone cypionate 200 mg/mL 100 mg (0.5 mL) IM WEEKLY #1 mL 05/23/24 08/29/24 Rx intramuscular oil sertraline 100 mg tablet 200 mg (2 x 100 mg) PO DAILY #180 07/11/24 08/29/24 Rx tabs pravastatin 40 mg tablet See Rx Instructions .Route 08/01/24 08/29/24 Rx .COMPLEX #90 tabs cyclobenzaprine 5 mg tablet See Rx Instructions .Route 08/29/24 08/29/24 Rx .COMPLEX #30 tabs omeprazole 20 mg capsule,delayed See Rx Instructions .Route 08/29/24 08/29/24 Rx release .COMPLEX #90 caps Allergies Allergy/AdvReac Type Severity Reaction Status Date / Time No Known Allergies Allergy Verified 08/29/24 11:14 Vital Signs Vital Signs - 24 hr 08/29/24 10:37 08/29/24 13:17 08/29/24 14:13 Temperature 97.7 F Pulse Rate 109 H 110 H 110 H Respiratory Rate 18 18 20 Blood Pressure 174/85 H 156/95 H 158/79 H Pulse Oximetry 97 97 98 Oxygen Delivery Room Air 08/29/24 16:38 08/29/24 16:48 Temperature 98.9 F Pulse Rate 117 H Respiratory Rate 18 Blood Pressure 175/88 H Pulse Oximetry 100 Oxygen Delivery Exam Narrative: General: Moderately ill-appearing male in the semi-Irwin position in bed. Weight: 137 kg. BMI: 43.3. HEENT: PERRL, EOMI. Sclera anicteric. Dry mucous membranes. Neck: Supple. Respiratory: Lungs are clear to auscultation bilaterally. Cardiovascular: Tachycardic with normal S1-S2. Gastrointestinal: Abdomen is obese and slightly distended with hypoactive bowel sounds. Mild tenderness palpation throughout the abdomen. No guarding or rebound tenderness. Skin: Warm and dry. Extremities: No cyanosis, clubbing, or edema. Radial and pedal pulses intact. Neurological: Alert. Cranial nerves 2-12 are grossly intact. No gross focal deficits to casual conversation. Psychiatric: Pleasant and cooperative with normal mood and affect. Judgment and insight intact. H&P: Results Labs Labs: Short CBC 08/29/24 Range/Units 10:48 WBC 11.4 H (4.5-10.0) K/mm3 Hgb 16.0 (14.0-18.0) g/dL Hct 50.1 (42.0-52.0) % Plt Count 278 (150-375) k/mm3 BMP 08/29/24 10:48 Sodium 139 Potassium 4.2 Chloride 104 Carbon Dioxide 20 L BUN 21 H Creatinine 0.90 Glucose 161 H Calcium 8.8 Liver Function 08/29/24 Range/Units 10:48 Total Bilirubin 1.1 (0.2-1.3) mg/dL AST 31 (17-59) U/L ALT 30 (6-50) U/L Alkaline Phosphatase 60 (38-126) U/L Albumin 4.7 (3.5-5.1) g/dL Urine 08/29/24 Range/Units 11:41 Urine Color Dark yellow (Yellow) Urine Appearance Clear (Clear) Urine pH 5.5 (5.0-9.0) Ur Specific [place] 1.035 (1.001-1.035) Urine Protein 2+ H (Negative) mg/dL Urine Glucose (UA) Negative (Negative) mg/dL Impressions Abdomen X-Ray 08/29/24 13:30 IMPRESSION: 1. Dilated small bowel, consistent with small bowel obstruction versus adynamic ileus. Abdomen/Pelvis CT 08/29/24 14:06 IMPRESSION: 1. Dilated small bowel without focal transition point, consistent with adynamic ileus versus partial obstruction. 2. Supraumbilical ventral hernia containing fat. Abdomen X-Ray 08/29/24 17:17 IMPRESSION: Nasogastric tube in good position and ready for immediate use. Assessment and Plan Assessment and plan (1) Ileus: Code(s): K56.7 - Ileus, unspecified Status: Acute (2) Gastroenteritis: Code(s): K52.9 - Noninfective gastroenteritis and colitis, unspecified Status: Acute (3) Dehydration: Code(s): E86.0 - Dehydration Status: Acute (4) Elevated blood pressure reading: Code(s): R03.0 - Elevated blood-pressure reading, without diagnosis of hypertension Status: Acute (5) Prediabetes: Code(s): R73.03 - Prediabetes Status: Acute Plan The patient presented to the emergency department for evaluation of nausea, vomiting, and diarrhea since last evening as detailed in HPI. Labs, imaging, EKG, and all reports were personally reviewed. CT scan shows findings of ileus versus partial small-bowel obstruction. Most likely he has an ileus related to gastroenteritis. Likely viral thus will hold on antibiotics for now. Stool studies ordered. NG tube has been inserted for decompression he is feeling much better at this time. Continue IV fluid rehydration and bowel rest with serial abdominal examinations. He is dehydrated has been started on IV fluids with dextrose. Patient also reports small amounts of bright red blood with his diarrhea however he has known hemorrhoids and bleeding is likely related to that. We will continue to monitor closely for now. Ventral hernia is without tenderness and is not causing current issues. He is prediabetic with a recent hemoglobin A1c of 5.9%. Hold metformin. Blood pressures have been running high, likely due to pain, and will be monitored. The rest of his home medications will be reviewed and resumed as appropriate. Findings and treatment plan were discussed with the patient. Questions were solicited and answered to satisfaction. The patient's medical management will be taken over by the hospitalist team in a.m. Quality VTE Prophylaxis VTE prophylaxis: mechanical ordered If No VTE Prophylaxis Answer both mechanical and pharmacologic: Reason no pharmacologic proph: medical contraindication (blood in stools) Hospitalist MIPS Advance Care Plan I have confirmed that the patient's Advanced Care Plan is present, code status is documented, or surrogate decision maker is listed in patient medical record.: Yes Medication Reconciliation I have utilized all available resources to obtain, update and review the patients current medications (includes all prescriptions, OTC, herbals, cannabis, and nutritional supplements).: Yes
[2024-08-29 17:05] LABS: Lactic Acid Reflex 2.1 mmol/L (0.7-2.0)
--- NOTE | 2024-08-29 17:47 | P.CONGI_ITS ---
Assessment and Plan Assessment and plan (1) Gastroenteritis: Code(s): K52.9 - Noninfective gastroenteritis and colitis, unspecified Status: Acute Assessment and Plan: The patient presents with a clinical picture suggestive of gastroenteritis, characterized by small bowel dilatation on imaging. Concomitantly, he has massive gastric dilatation, raising the possibility of coexisting gastroparesis. While both conditions can occur in viral gastroenteritis, their simultaneous presentation is less common. No evidence of mechanical obstruction is identified. Given the patient's history of diabetes, the possibility of pre-existing gastric dysmotility contributing to this presentation should be considered. Current management includes intravenous hydration with normal saline and intermittent low suction via nasogastric tube. A follow-up KUB is scheduled for tomorrow morning. Stool culture, complete blood count (CBC), and comprehensive metabolic panel (CMP) will also be obtained. (2) Gastroparesis: Code(s): K31.84 - Gastroparesis Status: Acute GI Consult Note Consult date/time: 08/29/24 17:47 Reason for consult: ileus and gastroparesis HPI: Mark Anthony Mendes is a 44-year-old male with a history of diabetes and hypertension. He was in his usual state of health until yesterday evening when he experienced the onset of severe, crampy abdominal pain. This was quickly followed by multiple episodes of watery diarrhea, occurring approximately hourly throughout the night. He also experienced significant dry heaves but denied bridger vomiting. He reported weakness and persistent abdominal pain, prompting him to present to the Emergency Department. On examination, his abdomen was tender. Imaging studies (KUB and CT scan) revealed massive gastric dilatation with diffuse dilatation of small bowel loops. A nasogastric tube was placed, draining a significant amount of dark, bilious- appearing gastric contents. The patient reported significant pain relief following this intervention. He denied any history of hematemesis or previous gastrointestinal bleeding. He did endorse a history of frequent hemorrhoidal bleeding, which he noted was active throughout the night, with some bright red blood passage observed with his diarrhea episodes. Review of Systems 2 Review of Systems: All systems reviewed & are unremarkable except as noted in HPI and below PMFSH Past Medical History Medical History IBS (irritable bowel syndrome) Chronic GERD Allergies Obesity due to excess calories History of postoperative nausea and vomiting Anesthesia complication Hx of difficulty waking up after anesthesia Sleep apnea Low iron Neck pain Nerve pain Mild acid reflux Anxiety Surgical History Surgical History History of cholecystectomy (~01/04/13) History of hernia repair (~09/18/17) History of hernia repair (~06/09/18) Family History Family History Grandparent Brain cancer Social History Social History Smoking status: Never smoker Lack of Transportation: No Lack of Food: Never True Current Housing: I Have Housing Concerned About Future Housing: No Difficulty Paying Gas/Electric Bills: No Difficulty Paying for Meds: No Currently Unemployed: No Education: Bachelor's Degree Difficulty w/ Childcare or Family Care: No Living arrangements: with family Occupation/Education: occupation Additional occupation/education comments: [employer] Gender identity (if verbalized by the patient): Male Meds Home Medications and Allergies Home Medications ?Medication ?Instructions ?Recorded ?Confirmed ?Type ferrous sulfate 325 mg (65 mg 325 mg PO DAILY 10/03/21 08/29/24 History iron) tablet folic acid 1 mg tablet 1 mg PO DAILY #90 tabs 02/22/24 07/25/24 Rx metformin 500 mg tablet,extended See Rx Instructions .Route 05/18/24 08/29/24 Rx release 24 hr .COMPLEX #90 tabs testosterone cypionate 200 mg/mL 100 mg (0.5 mL) IM WEEKLY #1 mL 05/23/24 08/29/24 Rx intramuscular oil sertraline 100 mg tablet 200 mg (2 x 100 mg) PO DAILY #180 07/11/24 08/29/24 Rx tabs pravastatin 40 mg tablet See Rx Instructions .Route 08/01/24 08/29/24 Rx .COMPLEX #90 tabs cyclobenzaprine 5 mg tablet See Rx Instructions .Route 08/29/24 08/29/24 Rx .COMPLEX #30 tabs omeprazole 20 mg capsule,delayed See Rx Instructions .Route 08/29/24 08/29/24 Rx release .COMPLEX #90 caps Allergies Allergy/AdvReac Type Severity Reaction Status Date / Time No Known Allergies Allergy Verified 08/29/24 11:14 Vital Signs Vital Signs - 24 hr 08/29/24 10:37 08/29/24 13:17 08/29/24 14:13 Temperature 97.7 F Pulse Rate 109 H 110 H 110 H Respiratory Rate 18 18 20 Blood Pressure 174/85 H 156/95 H 158/79 H Pulse Oximetry 97 97 98 Oxygen Delivery Room Air 08/29/24 16:38 08/29/24 16:48 Temperature 98.9 F Pulse Rate 117 H Respiratory Rate 18 Blood Pressure 175/88 H Pulse Oximetry 100 Oxygen Delivery Exam 2 Narrative: Patient alert and oriented. Not acutely distressed. Nasogastric tube in place showing bilious drainage. Chest and lungs: Clear. Abdomen: Active bowel sounds diffusely, no tenderness, no rebound. Rectal: Empty rectal vault, perianal region with signs of fresh bleeding. Results Labs 08/29/24 10:48 08/29/24 10:48 Labs: Short CBC 08/29/24 Range/Units 10:48 WBC 11.4 H (4.5-10.0) K/mm3 Hgb 16.0 (14.0-18.0) g/dL Hct 50.1 (42.0-52.0) % Plt Count 278 (150-375) k/mm3 BMP 08/29/24 10:48 Sodium 139 Potassium 4.2 Chloride 104 Carbon Dioxide 20 L BUN 21 H Creatinine 0.90 Glucose 161 H Calcium 8.8 Liver Function 08/29/24 Range/Units 10:48 Total Bilirubin 1.1 (0.2-1.3) mg/dL AST 31 (17-59) U/L ALT 30 (6-50) U/L Alkaline Phosphatase 60 (38-126) U/L Albumin 4.7 (3.5-5.1) g/dL Urine 08/29/24 Range/Units 11:41 Urine Color Dark yellow (Yellow) Urine Appearance Clear (Clear) Urine pH 5.5 (5.0-9.0) Ur Specific [place] 1.035 (1.001-1.035) Urine Protein 2+ H (Negative) mg/dL Urine Glucose (UA) Negative (Negative) mg/dL
[2024-08-29 19:51] LABS: Reflex Lactic Acid Yes or No Add Lactic
--- NOTE | 2024-08-29 20:10 | ADMGEN ---
This patient, Mark Anthony Mendes, was admitted to [facility] Surg Room 313-01. Patient/family oriented to hospital policies and general routines including ID bracelet, bed and alarms, visiting hours, pain management, procedures, bathroom and other care routines, personal items, smoking policy, room service/diet, and visiting hours. Information on how to activate the Rapid Response Team has been discussed. Patient/Family are encouraged to report perceived risks to care and to ask questions if they do not understand what they are told or what they should do.
[2024-08-29] MEDS: DEXTROSE 5%/0.9% SOD CHL 1,000 ML 100 ML IV CONT (21:10)
[2024-08-29 21:28] LABS: Lactic Acid 2.1 mmol/L (0.7-2.0)
[2024-08-29 21:43] LABS: Anion Gap 14 mmol/L (4-12); Blood Urea Nitrogen 24 mg/dL (9-20); Calcium 8.1 mg/dL (8.4-10.2); Carbon Dioxide 19 mmol/L (22-30); Chloride 105 mmol/L (98-107); Estimated CRCL calculation 101 ml/min; Estimated Glomerular Filt Rate > 60; Glucose 139 mg/dL (65-110); Magnesium 1.6 mg/dL (1.6-2.3); Potassium 3.8 mmol/L (3.4-5.0); Sodium 138 mmol/L (137-145)
[2024-08-29] MEDS: PIPERACILLN/TAZ 3.375GM/NS50ML 3.375 GM/50 ML BAG IVPB (23:04)
[2024-08-30 02:00] VITALS: BP 133/80; PULSE 110; RESP 18; TEMP 36.8; O2SAT 99
[2024-08-30 04:35] VITALS: BP 129/78; PULSE 102; RESP 20; TEMP 37.7; O2SAT 98
[2024-08-30] MEDS: DEXTROSE 5%/0.9% SOD CHL 1,000 ML 100 ML IV CONT ×2 (05:31→12:07)
[2024-08-30] MEDS: PIPERACILLN/TAZ 3.375GM/NS50ML 3.375 GM/50 ML BAG IVPB ×4 (05:31→23:45)
[2024-08-30 06:43] LABS: Basophils Percent Auto 0.1 % (0.2-1.2); Eosinophils Percent Auto 0.1 % (0-4.4); Hematocrit 41.2 % (42.0-52.0); Hemoglobin 12.4 g/dL (14.0-18.0); Immature Granulocyte Absolute 0.02 K/mm3 (0.00-0.031); Immature Granulocyte Percent A 0.3 % (0-0.5); Lymphocytes Absolute Auto 1.05 K/mm3 (0.9-3.2); Lymphocytes Percent Auto 14.6 % (18.3-44.2); Mean Corpuscular HGB Conc 30.1 g/dl (32-36); Mean Corpuscular Hemoglobin 25.5 pg (26-34); Mean Corpuscular Volume 84.6 fl (80-100); Mean Platelet Volume 9.7 fl (7.4-10.4); Monocytes Absolute Auto 1.1 K/mm3 (0.1-0.6); Monocytes Percent Auto 14.6 % (2.6-8.5); Neutrophils Percent Auto 70.3 % (45.5-73.1); Platelet Count Result 217 k/mm3 (150-375); Red Blood Count 4.87 M/mm3 (4.6-6.20); Red Cell Distribution Width 16.1 % (11.5-14.5); White Blood Count 7.2 K/mm3 (4.5-10.0)
[2024-08-30 07:24] LABS: Alanine Aminotransferase 26 U/L (6-50); Albumin Level 3.9 g/dL (3.5-5.1); Alkaline Phosphatase 40 U/L (38-126); Anion Gap 10 mmol/L (4-12); Aspartate Amino Transferase 32 U/L (17-59); Blood Urea Nitrogen 24 mg/dL (9-20); Carbon Dioxide 25 mmol/L (22-30); Chloride 106 mmol/L (98-107); Estimated CRCL calculation 96 ml/min; Estimated Glomerular Filt Rate > 60; Glucose 123 mg/dL (65-110); Magnesium 1.8 mg/dL (1.6-2.3); Potassium 4.4 mmol/L (3.4-5.0); Sodium 141 mmol/L (137-145)
[2024-08-30] MEDS: PANTOPRAZOLE SODIUM IV 40 MG VIAL IV PUSH (08:20)
--- NOTE | 2024-08-30 08:20 | P.PNIM_ITS ---
Progress Note: A&P Assessment and Plan (1) Ileus: Code(s): K56.7 - Ileus, unspecified Status: Acute Assessment and Plan: surgery consulted patient passing gas and having bowel movements no sign of ileus (2) Gastroenteritis: Code(s): K52.9 - Noninfective gastroenteritis and colitis, unspecified Status: Acute Assessment and Plan: with bloody bowel movements and Gastroparesis, likely viral GI consulted stool culture pending blood cultures no growth to date IV Zosyn repeat H&H stable advance diet slowly per GI likely discharge home tomorrow (3) Dehydration: Code(s): E86.0 - Dehydration Status: Acute Assessment and Plan: given 3 L IV fluids in ED encourage p.o. intake (4) Elevated blood pressure reading: Code(s): R03.0 - Elevated blood-pressure reading, without diagnosis of hypertension Status: Acute Assessment and Plan: improved with pain control Plan continue home antidepressants and Flexeril Time Spent With Patient Time with patient: Greater than 35 minutes Subjective Date/time seen: 08/30/24 08:20 Interval history: 44-year-old male with hyperlipidemia, prediabetes, obstructive sleep apnea, irritable bowel syndrome, hemorrhoids, and history of cholecystectomy and hernia repairs who presented to the emergency department via private vehicle for evaluation of nausea, vomiting, and diarrhea. patient seen by surgery Services with ileus and ventral hernia seen on CT, no plan for surgery this admission. KUB this morning shows nonobstructive bowel gas pattern. Hemoglobin dropped from 16 to 12 Could be delusional patient given 3 L IV fluids in the emergency room. plan to monitor patient for 24 hours likely discharge home tomorrow Review of Systems Review of Systems: 12 systems were reviewed and are negativ e except for as per HPI. Exam Narrative: General: no acute distress. HEENT: PERRL, EOMI. Sclera anicteric. moist mucous membranes. Neck: Supple. Respiratory: Lungs are clear to auscultation bilaterally. Cardiovascular: Tachycardic with normal S1-S2. Gastrointestinal: Abdomen is obese and slightly distended with hypoactive bowel sounds. Mild tenderness palpation throughout the abdomen. No guarding or rebound tenderness. Skin: Warm and dry. Extremities: No cyanosis, clubbing, or edema. Radial and pedal pulses intact. Neurological: Alert. Cranial nerves 2-12 are grossly intact. No gross focal deficits to casual conversation. Psychiatric: Pleasant and cooperative with normal mood and affect. Judgment and insight intact. Objective Data Vital Signs Vital Signs: Vital Signs - 24 hr 08/29/24 10:37 08/29/24 13:17 08/29/24 14:13 Temperature 97.7 F Pulse Rate 109 H 110 H 110 H Respiratory Rate 18 18 20 Blood Pressure 174/85 H 156/95 H 158/79 H Pulse Oximetry 97 97 98 Oxygen Delivery Room Air 08/29/24 16:38 08/29/24 16:48 08/29/24 18:36 Temperature 98.9 F 100.7 F H Pulse Rate 117 H 110 H Respiratory Rate 18 18 Blood Pressure 175/88 H 135/80 Pulse Oximetry 100 96 Oxygen Delivery 08/29/24 20:45 08/30/24 02:00 08/30/24 04:35 Temperature 99.0 F 98.2 F 99.8 F H Pulse Rate 129 H 110 H 102 H Respiratory Rate 24 H 18 20 Blood Pressure 138/81 133/80 129/78 Pulse Oximetry 96 99 98 Oxygen Delivery Intake/Output Intake/Output: Intake & Output 08/27/24 08/28/24 08/29/24 08/30/24 23:59 23:59 23:59 23:59 Intake Total 1050 835 Output Total 1850 Balance 1050 -1015 Meds/Results Medications: Active Medications Generic Name Dose Route Start Last Admin Trade Name Freq PRN Reason Stop Dose Admin Dextrose/Sodium Chloride 1,000 mls @ 150 mls/hr 08/29/24 20:50 08/30/24 05:31 Dextrose 5% Sodium Chloride 0.9% IV CONT 100 mls/hr .Q6H40M MIO Administration Piperacillin/Tazobactam/Dextrose 3.375 gm in 50 mls @ 100 mls/hr 08/29/24 22:00 08/30/24 05:31 Zosyn 3.375 Gm/Ns 50 Ml IVPB 100 mls/hr Q6HR MIO Administration Morphine Sulfate 4 mg 08/29/24 22:56 Morphine Sulfate (*Crx) 2 Mg/Ml Inj IV PUSH Q4H PRN Pain Rated 7-10 Morphine Sulfate 2 mg 08/29/24 22:56 Morphine Sulfate (*Crx) 2 Mg/Ml Inj IV PUSH Q4H PRN Pain Rated 4-6 Ondansetron HCl 4 mg 08/29/24 22:56 08/29/24 23:06 Ondansetron Inj 4 Mg/2 Ml Vial IV PUSH 4 mg Q6H PRN Administration Nausea And Vomiting Pantoprazole Sodium 40 mg 08/30/24 09:00 Pantoprazole Sodium Iv 40 Mg Vial [facility] [place] [facility] Results: ITS Impressions Abdomen/Pelvis CT 08/29/24 14:06 IMPRESSION: 1. Dilated small bowel without focal transition point, consistent with adynamic ileus versus partial obstruction. 2. Supraumbilical ventral hernia containing fat. Abdomen X-Ray 08/30/24 08:08 IMPRESSION: 1. Nonobstructive bowel gas pattern. Labs Labs: Laboratory Results - last 24 hr 08/29/24 08/29/24 08/29/24 10:48 11:12 11:41 WBC 11.4 H RBC 6.11 Hgb 16.0 Hct 50.1 MCV 82.0 MCH 26.2 MCHC 31.9 L RDW 16.5 H Plt Count 278 MPV 9.5 Immature Gran % (Auto) 0.4 Neut % (Auto) 89.0 H Lymph % (Auto) 3.3 L [place] % (Auto) 7.0 Eos % (Auto) 0.1 Baso % (Auto) 0.2 Lymph # (Auto) 0.38 L [place] # (Auto) 0.8 H Eos # (Auto) 0.0 Baso # (Auto) 0.0 Abs Immat Gran (auto) 0.05 H Absolute Neuts (auto) 10.2 H Absolute Nucleated RBC 0.000 Nucleated RBC % 0.0 Sodium 139 Potassium 4.2 Chloride 104 Carbon Dioxide 20 L Anion Gap 15 H BUN 21 H Creatinine 0.90 Estim Creat Clear Calc 128 Estimated GFR > 60 Glucose 161 H Lactic Acid Calcium 8.8 Magnesium Total Bilirubin 1.1 AST 31 ALT 30 Alkaline Phosphatase 60 Total Protein 8.0 Albumin 4.7 Lipase 36 Urine Color Dark yellow Urine Appearance Clear Urine pH 5.5 Ur Specific [place] 1.035 Urine Protein 2+ H Urine Glucose (UA) Negative Urine Ketones Trace H Ur Blood (Man) Negative Urine Nitrate Negative Urine Bilirubin Negative Urine Urobilinogen 1.0 Leukocyte Esterase Rfl Negative Urine RBC 0-2 Urine WBC 0-5 Ur Squamous Epith Cells None seen Urine Bacteria None seen Urine Casts 0-2 Influenza A (RT-PCR) Negative Influenza B (RT-PCR) Negative RSV (RT-PCR) Negative SARS-CoV-2 RNA (RT-PCR) Negative 08/29/24 08/29/24 08/29/24 16:40 21:01 21:04 WBC RBC Hgb Hct MCV MCH MCHC RDW Plt Count MPV Immature Gran % (Auto) Neut % (Auto) Lymph % (Auto) [place] % (Auto) Eos % (Auto) Baso % (Auto) Lymph # (Auto) Dickey # (Auto) Eos # (Auto) Baso # (Auto) Abs Immat Gran (auto) Absolute Neuts (auto) Absolute Nucleated RBC Nucleated RBC % Sodium 138 Potassium 3.8 Chloride 105 Carbon Dioxide 19 L Anion Gap 14 H BUN 24 H Creatinine 1.16 Estim Creat Clear Calc 101 Estimated GFR > 60 Glucose 139 H Lactic Acid 2.1 H 2.1 H Calcium 8.1 L Magnesium 1.6 Total Bilirubin AST ALT Alkaline Phosphatase Total Protein Albumin Lipase Urine Color Urine Appearance Urine pH Ur Specific [place] Urine Protein Urine Glucose (UA) Urine Ketones Ur Blood (Man) Urine Nitrate Urine Bilirubin Urine Urobilinogen Leukocyte Esterase Rfl Urine RBC Urine WBC Ur Squamous Epith Cells Urine Bacteria Urine Casts Influenza A (RT-PCR) Influenza B (RT-PCR) RSV (RT-PCR) SARS-CoV-2 RNA (RT-PCR) 08/30/24 06:24 WBC 7.2 RBC 4.87 Hgb 12.4 L D Hct 41.2 L MCV 84.6 MCH 25.5 L MCHC 30.1 L RDW 16.1 H Plt Count 217 MPV 9.7 Immature Gran % (Auto) 0.3 Neut % (Auto) 70.3 Lymph % (Auto) 14.6 L [place] % (Auto) 14.6 H Eos % (Auto) 0.1 Baso % (Auto) 0.1 L Lymph # (Auto) 1.05 Dickey # (Auto) 1.1 H Eos # (Auto) 0.0 Baso # (Auto) 0.0 Abs Immat Gran (auto) 0.02 Absolute Neuts (auto) 5.0 Absolute Nucleated RBC 0.000 Nucleated RBC % 0.0 Sodium 141 Potassium 4.4 Chloride 106 Carbon Dioxide 25 Anion Gap 10 BUN 24 H Creatinine 1.21 Estim Creat Clear Calc 96 Estimated GFR > 60 Glucose 123 H Lactic Acid Calcium 8.0 L Magnesium 1.8 Total Bilirubin 1.0 AST 32 ALT 26 Alkaline Phosphatase 40 Total Protein 7.0 Albumin 3.9 Lipase Urine Color Urine Appearance Urine pH Ur Specific [place] Urine Protein Urine Glucose (UA) Urine Ketones Ur Blood (Man) Urine Nitrate Urine Bilirubin Urine Urobilinogen Leukocyte Esterase Rfl Urine RBC Urine WBC Ur Squamous Epith Cells Urine Bacteria Urine Casts Influenza A (RT-PCR) Influenza B (RT-PCR) RSV (RT-PCR) SARS-CoV-2 RNA (RT-PCR) Quality VTE Prophylaxis VTE prophylaxis: mechanical ordered
--- NOTE | 2024-08-30 08:36 | P.PNGI_ITS ---
Progress Note: A&P Assessment and Plan (1) Gastroparesis: Code(s): K31.84 - Gastroparesis Status: Acute (2) Gastroenteritis: Code(s): K52.9 - Noninfective gastroenteritis and colitis, unspecified Status: Acute Assessment and Plan: The patient had a transient episode of gastroparesis which seems to be resolved by now. Since clinical and radiologic progress is evident, will remove NG tube and start a clear liquid diet. Will observe him 24 more hours and if he tolerates clear liquid diet for lunch, will advance to bland diet tonight and plan for discharge tomorrow if he continues to do well. Subjective Date/time seen: 08/30/24 08:36 Interval history: patient feels much better today, no abdominal pain, no nausea, no vomiting, continued to have a few diarrheal bowel movements. Hemoglobin dropped from 16- 12, definitely from IV fluid administration. KUB shows resolution of the ileus. Nasogastric tube drained more than 4 L of greenish/brownish fluid, however this morning is draining scant amount of light green fluid, scant amounts. Objective Data Vital Signs Vital Signs: Vital Signs - 24 hr 08/29/24 10:37 08/29/24 13:17 08/29/24 14:13 Temperature 97.7 F Pulse Rate 109 H 110 H 110 H Respiratory Rate 18 18 20 Blood Pressure 174/85 H 156/95 H 158/79 H Pulse Oximetry 97 97 98 Oxygen Delivery Room Air 08/29/24 16:38 08/29/24 16:48 08/29/24 18:36 Temperature 98.9 F 100.7 F H Pulse Rate 117 H 110 H Respiratory Rate 18 18 Blood Pressure 175/88 H 135/80 Pulse Oximetry 100 96 Oxygen Delivery 08/29/24 20:45 08/30/24 02:00 08/30/24 04:35 Temperature 99.0 F 98.2 F 99.8 F H Pulse Rate 129 H 110 H 102 H Respiratory Rate 24 H 18 20 Blood Pressure 138/81 133/80 129/78 Pulse Oximetry 96 99 98 Oxygen Delivery Intake/Output Intake/Output: Intake & Output 08/27/24 08/28/24 08/29/24 08/30/24 23:59 23:59 23:59 23:59 Intake Total 1050 835 Output Total 1850 Balance 1050 -1015 Meds/Results Medications: Active Medications Generic Name Dose Route Start Last Admin Trade Name Freq PRN Reason Stop Dose Admin Cyclobenzaprine HCl 0 mg 08/30/24 08:35 Cyclobenzaprine Hcl 5 Mg Tablet BY MOUTH .COMPLEX MIO Dextrose/Sodium Chloride 1,000 mls @ 150 mls/hr 08/29/24 20:50 08/30/24 05:31 Dextrose 5% Sodium Chloride 0.9% IV CONT 100 mls/hr .Q6H40M [facility] Administration Piperacillin/Tazobactam/Dextrose 3.375 gm in 50 mls @ 100 mls/hr 08/29/24 22:00 08/30/24 05:31 Zosyn 3.375 Gm/Ns 50 Ml IVPB 100 mls/hr Q6HR MIO Administration Morphine Sulfate 4 mg 08/29/24 22:56 Morphine Sulfate (*Crx) 2 Mg/Ml Inj IV PUSH Q4H PRN Pain Rated 7-10 Morphine Sulfate 2 mg 08/29/24 22:56 Morphine Sulfate (*Crx) 2 Mg/Ml Inj IV PUSH Q4H PRN Pain Rated 4-6 Ondansetron HCl 4 mg 08/29/24 22:56 08/29/24 23:06 Ondansetron Inj 4 Mg/2 Ml Vial IV PUSH 4 mg Q6H PRN Administration Nausea And Vomiting Pantoprazole Sodium 40 mg 08/30/24 09:00 08/30/24 08:20 Pantoprazole Sodium Iv 40 Mg Vial IV PUSH 40 mg QAM MIO Administration Sertraline HCl 200 mg 08/30/24 09:00 Sertraline Hcl 50 Mg Tablet PO DAILY [facility] Radiology Results: ITS Impressions Abdomen/Pelvis CT 08/29/24 14:06 IMPRESSION: 1. Dilated small bowel without focal transition point, consistent with adynamic ileus versus partial obstruction. 2. Supraumbilical ventral hernia containing fat. Abdomen X-Ray 08/30/24 08:08 IMPRESSION: 1. Nonobstructive bowel gas pattern. Labs Labs: Laboratory Results - last 24 hr 08/29/24 08/29/24 08/29/24 10:48 11:12 11:41 WBC 11.4 H RBC 6.11 Hgb 16.0 Hct 50.1 MCV 82.0 MCH 26.2 MCHC 31.9 L RDW 16.5 H Plt Count 278 MPV 9.5 Immature Gran % (Auto) 0.4 Neut % (Auto) 89.0 H Lymph % (Auto) 3.3 L [place] % (Auto) 7.0 Eos % (Auto) 0.1 Baso % (Auto) 0.2 Lymph # (Auto) 0.38 L [place] # (Auto) 0.8 H Eos # (Auto) 0.0 Baso # (Auto) 0.0 Abs Immat Gran (auto) 0.05 H Absolute Neuts (auto) 10.2 H Absolute Nucleated RBC 0.000 Nucleated RBC % 0.0 Sodium 139 Potassium 4.2 Chloride 104 Carbon Dioxide 20 L Anion Gap 15 H BUN 21 H Creatinine 0.90 Estim Creat Clear Calc 128 Estimated GFR > 60 Glucose 161 H Lactic Acid Calcium 8.8 Magnesium Total Bilirubin 1.1 AST 31 ALT 30 Alkaline Phosphatase 60 Total Protein 8.0 Albumin 4.7 Lipase 36 Urine Color Dark yellow Urine Appearance Clear Urine pH 5.5 Ur Specific [place] 1.035 Urine Protein 2+ H Urine Glucose (UA) Negative Urine Ketones Trace H Ur Blood (Man) Negative Urine Nitrate Negative Urine Bilirubin Negative Urine Urobilinogen 1.0 Leukocyte Esterase Rfl Negative Urine RBC 0-2 Urine WBC 0-5 Ur Squamous Epith Cells None seen Urine Bacteria None seen Urine Casts 0-2 Influenza A (RT-PCR) Negative Influenza B (RT-PCR) Negative RSV (RT-PCR) Negative SARS-CoV-2 RNA (RT-PCR) Negative 08/29/24 08/29/24 08/29/24 16:40 21:01 21:04 WBC RBC Hgb Hct MCV MCH MCHC RDW Plt Count MPV Immature Gran % (Auto) Neut % (Auto) Lymph % (Auto) [place] % (Auto) Eos % (Auto) Baso % (Auto) Lymph # (Auto) [place] # (Auto) Eos # (Auto) Baso # (Auto) Abs Immat Gran (auto) Absolute Neuts (auto) Absolute Nucleated RBC Nucleated RBC % Sodium 138 Potassium 3.8 Chloride 105 Carbon Dioxide 19 L Anion Gap 14 H BUN 24 H Creatinine 1.16 Estim Creat Clear Calc 101 Estimated GFR > 60 Glucose 139 H Lactic Acid 2.1 H 2.1 H Calcium 8.1 L Magnesium 1.6 Total Bilirubin AST ALT Alkaline Phosphatase Total Protein Albumin Lipase Urine Color Urine Appearance Urine pH Ur Specific [place] Urine Protein Urine Glucose (UA) Urine Ketones Ur Blood (Man) Urine Nitrate Urine Bilirubin Urine Urobilinogen Leukocyte Esterase Rfl Urine RBC Urine WBC Ur Squamous Epith Cells Urine Bacteria Urine Casts Influenza A (RT-PCR) Influenza B (RT-PCR) RSV (RT-PCR) SARS-CoV-2 RNA (RT-PCR) 08/30/24 06:24 WBC 7.2 RBC 4.87 Hgb 12.4 L D Hct 41.2 L MCV 84.6 MCH 25.5 L MCHC 30.1 L RDW 16.1 H Plt Count 217 MPV 9.7 Immature Gran % (Auto) 0.3 Neut % (Auto) 70.3 Lymph % (Auto) 14.6 L [place] % (Auto) 14.6 H Eos % (Auto) 0.1 Baso % (Auto) 0.1 L Lymph # (Auto) 1.05 [place] # (Auto) 1.1 H Eos # (Auto) 0.0 Baso # (Auto) 0.0 Abs Immat Gran (auto) 0.02 Absolute Neuts (auto) 5.0 Absolute Nucleated RBC 0.000 Nucleated RBC % 0.0 Sodium 141 Potassium 4.4 Chloride 106 Carbon Dioxide 25 Anion Gap 10 BUN 24 H Creatinine 1.21 Estim Creat Clear Calc 96 Estimated GFR > 60 Glucose 123 H Lactic Acid Calcium 8.0 L Magnesium 1.8 Total Bilirubin 1.0 AST 32 ALT 26 Alkaline Phosphatase 40 Total Protein 7.0 Albumin 3.9 Lipase Urine Color Urine Appearance Urine pH Ur Specific [place] Urine Protein Urine Glucose (UA) Urine Ketones Ur Blood (Man) Urine Nitrate Urine Bilirubin Urine Urobilinogen Leukocyte Esterase Rfl Urine RBC Urine WBC Ur Squamous Epith Cells Urine Bacteria Urine Casts Influenza A (RT-PCR) Influenza B (RT-PCR) RSV (RT-PCR) SARS-CoV-2 RNA (RT-PCR)
[2024-08-30] MEDS: SERTRALINE HCL 50 MG TABLET 200 MG PO (09:34)
[2024-08-30 09:56] LABS: Hematocrit 40.6 % (42.0-52.0); Hemoglobin 12.6 g/dL (14.0-18.0)
[2024-08-30 10:06] VITALS: O2SAT 95
[2024-08-30] MEDS: CYCLOBENZAPRINE HCL 5 MG TABLET BY MOUTH ×2 (12:06→18:14)
--- NOTE | 2024-08-30 12:20 | P.PNGS_ITS ---
Progress Note: A&P Assessment and Plan (1) Gastroenteritis: Code(s): K52.9 - Noninfective gastroenteritis and colitis, unspecified Status: Acute Assessment and Plan: Improving. Okay to advance diet from my perspective. Home when rehydrated and tolerating solid food. (2) Ventral hernia without obstruction or gangrene: Code(s): K43.9 - Ventral hernia without obstruction or gangrene Status: Chronic Assessment and Plan: Re-recurrent hernia. Not symptomatic. Patient prefers to lose weight before having any additional surgery which I totally agree with. I discussed this with him. I would be happy to see him in the office electively after 30-50 lb weight loss. (3) GI bleed: Code(s): K92.2 - Gastrointestinal hemorrhage, unspecified Status: Acute Assessment and Plan: Rectal bleeding, bright red blood. Most likely hemorrhoidal bleeding exacerbated by the diarrhea. H&H is lower today but with his dehydration, I do not feel there was any evidence of persistent or ongoing bleeding. (4) Acute dehydration: Code(s): E86.0 - Dehydration Status: Acute Assessment and Plan: Continue rehydration and feeding. Subjective Subjective Date/Time Seen: 08/30/24 12:20 Patient reports: feels better, pain is less, no flatus and fever (38.2 last night, none this morning) Interval history: Feels much better today. Nasogastric tube was removed earlier and he has already had liquids without problems. Abdominal pain is gone Review of Systems Review of Systems: All systems reviewed & are unremarkable except as noted in HPI and below (HPI) Exam Const: General: cooperative, comfortable, no acute distress, alert, awake and tired appearing Nutritional Appearance: obese Orientation/consciousness: patient oriented x3 GI: Inspection: non-distended, obesity, scar (Transverse supraumbilical) and visible herniation (Above hernia scar) GI Palp: Yes Soft to palpation, No Tenderness to palpation present (GI), No Guarding due to palpation present (GI), Yes Hernia present incisional < 3 cm (Reducible, barely palpable recurrent hernia. Most noted with cough) and No Rebound tenderness present Neuro: General: patient oriented x3 and no focal motor deficits Extrem: General: no calf tenderness and no edema Psych: Affect: normal affect Insight: Good insight present (Psych) Judgement: Good judgement present (Psych) Objective Data Vital Signs Vital Signs: Vital Signs - 24 hr 08/29/24 13:17 08/29/24 14:13 08/29/24 16:38 Temperature Pulse Rate 110 H 110 H 117 H Respiratory Rate 18 20 18 Blood Pressure 156/95 H 158/79 H 175/88 H Pulse Oximetry 97 98 100 Oxygen Delivery 08/29/24 16:48 08/29/24 18:36 08/29/24 20:45 Temperature 37.2 C 38.2 C H 37.2 C Pulse Rate 110 H 129 H Respiratory Rate 18 24 H Blood Pressure 135/80 138/81 Pulse Oximetry 96 96 Oxygen Delivery 08/30/24 02:00 08/30/24 04:35 08/30/24 08:00 Temperature 36.8 C 37.7 C H Pulse Rate 110 H 102 H Respiratory Rate 18 20 Blood Pressure 133/80 129/78 Pulse Oximetry 99 98 Oxygen Delivery Room Air 08/30/24 10:06 Temperature Pulse Rate Respiratory Rate Blood Pressure Pulse Oximetry 95 Oxygen Delivery Room Air Intake/Output Intake/Output: Intake & Output 08/27/24 08/28/24 08/29/24 08/30/24 23:59 23:59 23:59 23:59 Intake Total 1050 1545 Output Total 1850 Balance 1050 -305 Meds/Results Medications: Active Medications Generic Name Dose Route Start Last Admin Trade Name Freq PRN Reason Stop Dose Admin Cyclobenzaprine HCl 5 mg 08/30/24 08:35 08/30/24 12:06 Cyclobenzaprine Hcl 5 Mg Tablet BY MOUTH 5 mg TID PRN Administration MUSCLE SPASM Dextrose/Sodium Chloride 1,000 mls @ 150 mls/hr 08/29/24 20:50 08/30/24 12:07 Dextrose 5% Sodium Chloride 0.9% IV CONT 100 mls/hr .Q6H40M MIO Administration Piperacillin/Tazobactam/Dextrose 3.375 gm in 50 mls @ 100 mls/hr 08/29/24 22:00 08/30/24 12:06 Zosyn 3.375 Gm/Ns 50 Ml IVPB 100 mls/hr Q6HR MIO Administration Morphine Sulfate 4 mg 08/29/24 22:56 Morphine Sulfate (*Crx) 2 Mg/Ml Inj IV PUSH Q4H PRN Pain Rated 7-10 Morphine Sulfate 2 mg 08/29/24 22:56 Morphine Sulfate (*Crx) 2 Mg/Ml Inj IV PUSH Q4H PRN Pain Rated 4-6 Ondansetron HCl 4 mg 08/29/24 22:56 08/29/24 23:06 Ondansetron Inj 4 Mg/2 Ml Vial IV PUSH 4 mg Q6H PRN Administration Nausea And Vomiting Pantoprazole Sodium 40 mg 08/30/24 09:00 08/30/24 08:20 Pantoprazole Sodium Iv 40 Mg Vial IV PUSH 40 mg QAM MIO Administration Sertraline HCl 200 mg 08/30/24 09:00 08/30/24 09:34 Sertraline Hcl 50 Mg Tablet PO 200 mg DAILY MIO Administration Radiology Results: ITS Impressions Abdomen/Pelvis CT 08/29/24 14:06 IMPRESSION: 1. Dilated small bowel without focal transition point, consistent with adynamic ileus versus partial obstruction. 2. Supraumbilical ventral hernia containing fat. Abdomen X-Ray 08/30/24 08:08 IMPRESSION: 1. Nonobstructive bowel gas pattern. Labs Labs: Laboratory Results - last 24 hr 08/29/24 08/29/24 08/29/24 16:40 21:01 21:04 WBC RBC Hgb Hct MCV MCH MCHC RDW Plt Count MPV Immature Gran % (Auto) Neut % (Auto) Lymph % (Auto) [place] % (Auto) Eos % (Auto) Baso % (Auto) Lymph # (Auto) [place] # (Auto) Eos # (Auto) Baso # (Auto) Abs Immat Gran (auto) Absolute Neuts (auto) Absolute Nucleated RBC Nucleated RBC % Sodium 138 Potassium 3.8 Chloride 105 Carbon Dioxide 19 L Anion Gap 14 H BUN 24 H Creatinine 1.16 Estim Creat Clear Calc 101 Estimated GFR > 60 Glucose 139 H Lactic Acid 2.1 H 2.1 H Calcium 8.1 L Magnesium 1.6 Total Bilirubin AST ALT Alkaline Phosphatase Total Protein Albumin 08/30/24 08/30/24 06:24 09:52 WBC 7.2 RBC 4.87 Hgb 12.4 L D 12.6 L Hct 41.2 L 40.6 L MCV 84.6 MCH 25.5 L MCHC 30.1 L RDW 16.1 H Plt Count 217 MPV 9.7 Immature Gran % (Auto) 0.3 Neut % (Auto) 70.3 Lymph % (Auto) 14.6 L [place] % (Auto) 14.6 H Eos % (Auto) 0.1 Baso % (Auto) 0.1 L Lymph # (Auto) 1.05 [place] # (Auto) 1.1 H Eos # (Auto) 0.0 Baso # (Auto) 0.0 Abs Immat Gran (auto) 0.02 Absolute Neuts (auto) 5.0 Absolute Nucleated RBC 0.000 Nucleated RBC % 0.0 Sodium 141 Potassium 4.4 Chloride 106 Carbon Dioxide 25 Anion Gap 10 BUN 24 H Creatinine 1.21 Estim Creat Clear Calc 96 Estimated GFR > 60 Glucose 123 H Lactic Acid Calcium 8.0 L Magnesium 1.8 Total Bilirubin 1.0 AST 32 ALT 26 Alkaline Phosphatase 40 Total Protein 7.0 Albumin 3.9
[2024-08-30 14:00] VITALS: BP 128/81; PULSE 92; RESP 20; TEMP 36.6; O2SAT 99
[2024-08-30 20:30] VITALS: BP 98/61; PULSE 88; RESP 20; TEMP 37.3; O2SAT 98
[2024-08-30 22:20] VITALS: PULSE 70; O2SAT 98
[2024-08-31] MEDS: PIPERACILLN/TAZ 3.375GM/NS50ML 3.375 GM/50 ML BAG IVPB (05:22)
[2024-08-31 05:30] VITALS: BP 110/60; PULSE 81; RESP 20; TEMP 36.2; O2SAT 99
--- NOTE | 2024-08-31 07:17 | WPDGIPROGNO ---
Progress Note: A&P Assessment and Plan (1) Ileus: Code(s): K56.7 - Ileus, unspecified Status: Acute Assessment and Plan: The patient had an apparent viral gastroenteritis with a significant gastroparesis component which was resolved with intravenous hydration and NG tube suction. Since the patient tolerated diet well, he can be discharged home and advised to have a soft bland diet avoid condiments, fatty food, sodas, etc Subjective Date/time seen: 08/31/24 07:17 Interval history: The patient feels much better, still having loose stools until last night, however he did not have any stools today. He recovered his appetite and tolerated a more solid diet last night. Exam Const: General: cooperative, comfortable, no acute distress, alert, awake and tired appearing Nutritional Appearance: obese Orientation/consciousness: patient oriented x3 GI: Inspection: non-distended, obesity, scar (Transverse supraumbilical) and visible herniation (Above hernia scar) GI Palp: Yes Soft to palpation, No Tenderness to palpation present (GI), No Guarding due to palpation present (GI), Yes Hernia present incisional < 3 cm (Reducible, barely palpable recurrent hernia. Most noted with cough) and No Rebound tenderness present Neuro: General: patient oriented x3 and no focal motor deficits Extrem: General: no calf tenderness and no edema Psych: Affect: normal affect Insight: Good insight present (Psych) Judgement: Good judgement present (Psych) Objective Data Vital Signs Vital Signs: Vital Signs - 24 hr 08/30/24 08:00 08/30/24 10:06 08/30/24 14:00 Temperature 97.9 F Pulse Rate 92 Respiratory Rate 20 Blood Pressure 128/81 Pulse Oximetry 95 99 Oxygen Delivery Room Air Room Air 08/30/24 20:00 08/30/24 20:30 08/30/24 22:20 Temperature 99.1 F Pulse Rate 88 70 Respiratory Rate 20 Blood Pressure 98/61 L Pulse Oximetry 98 98 Oxygen Delivery Room Air 08/31/24 05:30 Temperature 97.2 F L Pulse Rate 81 Respiratory Rate 20 Blood Pressure 110/60 Pulse Oximetry 99 Oxygen Delivery Intake/Output Intake/Output: Intake & Output 08/28/24 08/29/24 08/30/24 08/31/24 23:59 23:59 23:59 23:59 Intake Total 1050 3862 300 Output Total 1850 Balance 1050 2012 300 Meds/Results Medications: Active Medications Generic Name Dose Route Start Last Admin Trade Name Freq PRN Reason Stop Dose Admin Cyclobenzaprine HCl 5 mg 08/30/24 08:35 08/30/24 18:14 Cyclobenzaprine Hcl 5 Mg Tablet BY MOUTH 5 mg TID PRN Administration MUSCLE SPASM Piperacillin/Tazobactam/Dextrose 3.375 gm in 50 mls @ 100 mls/hr 08/29/24 22:00 08/31/24 05:52 Zosyn 3.375 Gm/Ns 50 Ml IVPB Infused Q6HR MIO Infusion Morphine Sulfate 4 mg 08/29/24 22:56 Morphine Sulfate (*Crx) 2 Mg/Ml Inj IV PUSH Q4H PRN Pain Rated 7-10 Morphine Sulfate 2 mg 08/29/24 22:56 Morphine Sulfate (*Crx) 2 Mg/Ml Inj IV PUSH Q4H PRN Pain Rated 4-6 Ondansetron HCl 4 mg 08/29/24 22:56 08/29/24 23:06 Ondansetron Inj 4 Mg/2 Ml Vial IV PUSH 4 mg Q6H PRN Administration Nausea And Vomiting Pantoprazole Sodium 40 mg 08/30/24 09:00 08/30/24 08:20 Pantoprazole Sodium Iv 40 Mg Vial IV PUSH 40 mg QAM MIO Administration Sertraline HCl 200 mg 08/30/24 09:00 08/30/24 09:34 Sertraline Hcl 50 Mg Tablet PO 200 mg DAILY MIO Administration Radiology Results: ITS Impressions Abdomen/Pelvis CT 08/29/24 14:06 IMPRESSION: 1. Dilated small bowel without focal transition point, consistent with adynamic ileus versus partial obstruction. 2. Supraumbilical ventral hernia containing fat. Abdomen X-Ray 08/30/24 08:08 IMPRESSION: 1. Nonobstructive bowel gas pattern. Labs Labs: Laboratory Results - last 24 hr 08/30/24 08/30/24 06:24 09:52 Hgb 12.6 L Hct 40.6 L Sodium 141 Potassium 4.4 Chloride 106 Carbon Dioxide 25 Anion Gap 10 BUN 24 H Creatinine 1.21 Estim Creat Clear Calc 96 Estimated GFR > 60 Glucose 123 H Calcium 8.0 L Magnesium 1.8 Total Bilirubin 1.0 AST 32 ALT 26 Alkaline Phosphatase 40 Total Protein 7.0 Albumin 3.9
[2024-08-31] MEDS: SERTRALINE HCL 50 MG TABLET 200 MG PO (08:20)
[2024-08-31] MEDS: PANTOPRAZOLE SODIUM IV 40 MG VIAL IV PUSH (08:21)
[2024-08-31] MEDS: CYCLOBENZAPRINE HCL 5 MG TABLET BY MOUTH (08:21)
--- NOTE | 2024-08-31 11:45 | PM.PNGS ---
Progress Note: A&P Assessment and Plan (1) Gastroenteritis: Code(s): K52.9 - Noninfective gastroenteritis and colitis, unspecified Status: Acute Assessment and Plan: Improving. Tolerating solid food and diarrhea slowing. Okay to discharge home from a surgical standpoint. No follow-up needed. (2) Ventral hernia without obstruction or gangrene: Code(s): K43.9 - Ventral hernia without obstruction or gangrene Status: Chronic Assessment and Plan: May follow up with Dr. Palma in the office after 30-50 lb weight loss as discussed. (3) GI bleed: Code(s): K92.2 - Gastrointestinal hemorrhage, unspecified Status: Acute Assessment and Plan: Likely hemorrhoidal bleeding. Resolved as diarrhea improved. (4) Acute dehydration: Code(s): E86.0 - Dehydration Status: Acute Assessment and Plan: Resolved. Subjective Subjective Date/Time Seen: 08/31/24 11:45 Patient reports: no new complaints, feels better, tolerating a regular diet, flatus, bowel movement, diarrhea (Slowing down) and afebrile Interval history: Feeling better today. No abdominal pain, nausea, or vomiting. Tolerating a solid diet. Diarrhea improved. No rectal bleeding. Exam Const: General: comfortable and no acute distress Orientation/consciousness: patient oriented x3 GI: Inspection: non-distended GI Palp: Yes Soft to palpation, No Tenderness to palpation present (GI) and No Guarding due to palpation present (GI) Auscultation: normal bowel sounds Objective Data Vital Signs Vital Signs: Vital Signs - 24 hr 08/30/24 14:00 08/30/24 20:00 08/30/24 20:30 Temperature 97.9 F 99.1 F Pulse Rate 92 88 Respiratory Rate 20 20 Blood Pressure 128/81 98/61 L Pulse Oximetry 99 98 Oxygen Delivery Room Air 08/30/24 22:20 08/31/24 05:30 08/31/24 08:00 Temperature 97.2 F L Pulse Rate 70 81 Respiratory Rate 20 Blood Pressure 110/60 Pulse Oximetry 98 99 Oxygen Delivery CPAP Intake/Output Intake/Output: Intake & Output 08/28/24 08/29/24 08/30/24 08/31/24 23:59 23:59 23:59 23:59 Intake Total 1050 3862 540 Output Total 1850 Balance 1050 2012 540 Meds/Results Medications: Active Medications Generic Name Dose Route Start Last Admin Trade Name Freq PRN Reason Stop Dose Admin Cyclobenzaprine HCl 5 mg 08/30/24 08:35 08/31/24 08:21 Cyclobenzaprine Hcl 5 Mg Tablet BY MOUTH 5 mg TID PRN Administration MUSCLE SPASM Piperacillin/Tazobactam/Dextrose 3.375 gm in 50 mls @ 100 mls/hr 08/29/24 22:00 08/31/24 11:44 Zosyn 3.375 Gm/Ns 50 Ml IVPB Not Given Q6HR MIO Morphine Sulfate 4 mg 08/29/24 22:56 Morphine Sulfate (*Crx) 2 Mg/Ml Inj IV PUSH Q4H PRN Pain Rated 7-10 Morphine Sulfate 2 mg 08/29/24 22:56 Morphine Sulfate (*Crx) 2 Mg/Ml Inj IV PUSH Q4H PRN Pain Rated 4-6 Ondansetron HCl 4 mg 08/29/24 22:56 08/29/24 23:06 Ondansetron Inj 4 Mg/2 Ml Vial IV PUSH 4 mg Q6H PRN Administration Nausea And Vomiting Pantoprazole Sodium 40 mg 08/30/24 09:00 08/31/24 08:21 Pantoprazole Sodium Iv 40 Mg Vial IV PUSH 40 mg QAM MIO Administration Sertraline HCl 200 mg 08/30/24 09:00 08/31/24 08:20 Sertraline Hcl 50 Mg Tablet PO 200 mg DAILY MIO Administration Radiology Results: ITS Impressions Abdomen/Pelvis CT 08/29/24 14:06 IMPRESSION: 1. Dilated small bowel without focal transition point, consistent with adynamic ileus versus partial obstruction. 2. Supraumbilical ventral hernia containing fat. Abdomen X-Ray 08/30/24 08:08 IMPRESSION: 1. Nonobstructive bowel gas pattern.
--- NOTE | 2024-08-31 14:32 | P.DS_ITS ---
DS: Admitting Diagnosis Discharge Date 08/31/24 Admitting Diagnosis ileus DS: Discharge Diagnosis Discharge Diagnosis (1) Ileus: Code(s): K56.7 - Ileus, unspecified Status: Acute (2) Gastroenteritis: Code(s): K52.9 - Noninfective gastroenteritis and colitis, unspecified Status: Acute (3) Dehydration: Code(s): E86.0 - Dehydration Status: Acute (4) Elevated blood pressure reading: Code(s): R03.0 - Elevated blood-pressure reading, without diagnosis of hypertension Status: Acute Plan Disposition: discharged to home DS: Summary Hospital Course Reason for hospitalization: ileus Hospital Course: Patient was a 44-year-old male with hyperlipidemia, prediabetes, obstructive sleep apnea, irritable bowel syndrome, hemorrhoids, and history of cholecystectomy and hernia repairs who presented to the emergency department with complaints of nausea, vomiting, and diarrhea. The patient was tachycardic had a low-grade temperature of 100.7? F. blood pressure has been stable if not a bit elevated. He tested negative for influenza, RSV, and COVID. CT head of the abdomen pelvis showed dilated small bowel without focal transition point consistent with adynamic ileus versus partial obstruction and a supraumbilical ventral hernia containing fat. He received 3 L IV fluid in several different antiemetics but continued to have nausea. He then began vomiting and an NG tube was placed and he was admitted to the medical unit with consult to general surgery and GI. Patient had continued IV hydration, pain control with NG tube with serial abdominal series. patient had overall improvement of ileus began to pass gas and have bowel movements NG tube was removed and he was able to tolerate oral intake. patient was seen and assessed on day of discharge follow- up KUB showed nonobstructive bowel gas pattern he was afebrile with normal WBC ileus had overall improved and he was tolerating oral intake. patient was aware to continue with bland soft diet and to avoid fatty salty and soda type items. Patient acknowledged and agreed with discharge plan, patient discharged home. Status at Discharge Functional status at discharge: independent ambulation Time Spent with Patient Time attestation: Total time spent providing and/or coordinating discharge services: Time spent: Greater than 30 minutes Exam Narrative: General: no acute distress. HEENT: PERRL, EOMI. Sclera anicteric. moist mucous membranes. Neck: Supple. Respiratory: Lungs are clear to auscultation bilaterally. Cardiovascular: Tachycardic with normal S1-S2. Gastrointestinal: Abdomen is obese bowel sounds in all 4 quadrants. nontender to palpation throughout the abdomen. No guarding or rebound tenderness. Skin: Warm and dry. Extremities: No cyanosis, clubbing, or edema. Radial and pedal pulses intact. Neurological: Alert. Cranial nerves 2-12 are grossly intact. No gross focal deficits to casual conversation. Psychiatric: Pleasant and cooperative with normal mood and affect. Judgment and insight intact. DS: Data Data Completed and Pending Labs on day of discharge: Preliminary micro results at discharge 08/29/24 23:09 Blood Culture - Preliminary Blood 08/29/24 23:09 Blood Culture - Preliminary Blood Discharge Plan Discharge Attending physician on discharge: Lowell Shaffer Consulting providers: Dustin Palma Discharging Clinician: Suzanne Mcintyre Anticipated Discharge Date/Time: 08/31/24 09:38 Patient Disposition: Home, Self-Care Activity: as tolerated Diet: other - see discharge instructions Discharge Instructions: * Soft bland diet advance as tolerated and avoid condiments, fatty foods, and sodas. * encourage hydration How can you care for yourself at home? ? Keep track of any new symptoms or changes in your symptoms. ? Rest until you feel better. ? Be safe with medicines. Take your medicines exactly as prescribed. Call your doctor if you think you are having a problem with your medicine. ? Do not drive after taking a prescription pain medicine. ? Ensure to follow-up with primary care physician as indicated and provide updated medication list provided to you at discharge. When should you call for help? Call 911 anytime you think you may need emergency care. For example, call if: ? You passed out (lost consciousness). Call your doctor now or seek immediate medical care if: ? You have new symptoms like fever, difficulty breathing, Chest pain, vomiting, or rash. ? You have new or different pain. ? You are confused and are having trouble thinking clearly. ? Your symptoms are getting worse. Watch closely for changes in your health, and be sure to contact your doctor if: ? You do not get better as expected. Patient Instructions: Antibiotic Form, Ileus (DC) Patient Language: Turkmen Stand Alone Forms: General Discharge Information Follow-up/Referrals: Maciej Hastings MD [Physician] - Keep Reg. Scheduled Appt. Discharge Medications: Continued ferrous sulfate 325 mg (65 mg iron) tablet 325 mg PO DAILY folic acid 1 mg tablet 1 mg PO DAILY Qty: 90 0RF metformin 500 mg tablet extended release 24 hr See Rx Instructions .ROUTE .COMPLEX Qty: 90 3RF Dose Instruction: Take 1 tablet by mouth once daily Rx Instructions: Take 1 tablet by mouth once daily testosterone cypionate 200 mg/mL oil 100 mg IM WEEKLY Qty: 1 2RF sertraline 100 mg tablet 200 mg PO DAILY Qty: 180 3RF pravastatin 40 mg tablet See Rx Instructions .ROUTE .COMPLEX Qty: 90 1RF Dose Instruction: Take 1 tablet by mouth once daily Rx Instructions: Take 1 tablet by mouth once daily cyclobenzaprine 5 mg tablet See Rx Instructions .ROUTE .COMPLEX Qty: 30 0RF Dose Instruction: Take 1 tablet by mouth three times daily as needed for muscle spasm Rx Instructions: Take 1 tablet by mouth three times daily as needed for muscle spasm omeprazole 20 mg capsule,delayed release(DR/EC) See Rx Instructions .ROUTE .COMPLEX Qty: 90 0RF Dose Instruction: Take 1 capsule by mouth once daily Rx Instructions: Take 1 capsule by mouth once daily Date of admission: 08/29/24 18:15 Primary Care Provider: Marycruz Hope Admitting Provider: Gómez Ewing Attending physician on admission: Suzanne Mcintyre Condition: Stable Quality VTE Prophylaxis VTE prophylaxis: mechanical ordered Hospitalist MIPS Heart Failure (Exclusion) Patient has history of Heart Transplant or Left Ventricular Assistive Device?: No IF YES, STOP HERE Heart Failure (Qualifier) Patient has current or prior documentation of LVEF less than or equal to 40%, or mod/servere depressed LVSF?: No IF NO, STOP HERE
--- OUTSIDE RECORDS SUMMARY | 2024-09-01 12:56 | XMS_ITS | Referral Summary ---
Author Organization [facility] Address [address] [place] [address] Care Team Providers Care Apprentice Painter Brush Name Role Phone Aaron Bryan MD Primary Care Provider + Allergies No known active allergies Medications omeprazole (PriLOSEC) 20 mg capsule Take one by mouth one time per day 90 3 9 Active Additional Information Patient taking differently:20 mgoral Daily, Reported on 03/06/2022 sertraline (ZOLOFT) 100 mg tablet Take 150 mg by mouth daily Active cyclobenzaprine (FLEXERIL) 5 mg tablet Take 5 mg by mouth 3 (three) times a day as needed 2 Active topiramate (TOPAMAX) 25 mg tablet 2 Active triamcinolone (KENALOG) 0.1 % cream Apply topically 2 (two) times a day Apply to rash. 80 g 6 2 Active Active Problems Problem Noted Date Diagnosed Date Iron deficiency anemia, unspecified 12/08/2018 Healthcare maintenance 04/23/2017 Medication management 04/23/2017 Incisional hernia 04/23/2017 Atopic rhinitis 12/24/2013 Overview (11/13/2016): ALLERGIC RHINITIS NOS Gastroesophageal reflux disease 12/24/2013 Overview (11/14/2016): ESOPHAGEAL REFLUX Irritable bowel syndrome 12/24/2013 Overview (11/14/2016): IRRITABLE BOWEL SYNDROME Immunizations Name Administration Dates Next Due H1N1 All Forms 09/03/2009 Influenza, Split 09/03/2009 Social History Tobacco Use Types Packs/Day Years Used Date Smoking Tobacco: Never Smokeless Tobacco: Never Alcohol Use Standard Drinks/Week Comments No 0 (1 standard drink = 0.6 oz pur e alcohol) Sex and Gender Information Value Date Recorded Sex Assigned at Not on file Legal Sex Male 5:15 PM THERMOSTAT MAKER Gender Identity Not on file Sexual Orientation Not on file Last Filed Vital Signs Vital Sign Reading Time Taken Comments Blood Pressure 126/77 03/06/2022 10:00 AM CDT Pulse 78 03/06/2022 10:00 AM CDT Temperature 36.8 ??C (98.3 ??F) 03/06/2022 1 0:00 AM CDT Respiratory Rate 12 03/06/2022 10:0 0 AM CDT Oxygen Saturation 98% 04/08/2021 2:08 PM CDT Inhaled Oxygen Concentration - - Weight 125.3 kg (276 lb 3.2 oz) 022 10:00 AM CDT Height 177.8 cm (5' 10 ) 03/06/2022 10: 00 AM CDT Body Mass Index 39.63 03/06/2022 10:00 AM CDT Plan of Treatment Not on file Medical Devices Implanted Type Area Coremaker Pipe Device Identifier Shelf Expiration Date Model / Serial / Lot Mesh Surgical Ventralight St Sepra Echo Ps Seprafilm Polypropylene Hydrogel [place] Od4.5 In Monofilament Lightweight Absorbable Low Profile Sterile Latex Free Ventral Hernia Repair - [id number] Implanted:Qty: 1 on 09/18/2017 by Emmett Zapata MD at [facility] Mesh N/A: Abdomen [employer]/C R Bard 06/06/2019 [id number] / / [id number] Procedures Procedure Name Priority Date/Time Associated Diagnosis Comments COLONOSCOPY Routine 07/07/2016 from Last 3 Months or Most Recently Relevant to Health Maintenance Results * COLONOSCOPY (07/07/2016) Colonoscopy Normal Comment:Mild diverticulosis w/o any inflammation, hemorrhoids. us Historical Provider HEALTH MAINTENANCE Final Result from Last 3 Months or Most Recently Relevant to Health Maintenance Insurance [facility] Address: [place] [address] [facility]PPO Address: [place] [address] [facility]/PPO Address: [place] [address] [facility] HMO/PPO Address: [place] [address] Care Teams Apprentice Painter Brush Relationship Specialty Start Date End Date Aaron Bryan MD [address] [place] [address] PCP - General 11/07/16
--- OUTSIDE RECORDS SUMMARY | 2024-09-01 12:56 | XMS_ITS | Patient Health Summary ---
Author Organization [facility] [employer] Address [address] [place] [address] Care Team Providers Care Car Top Bolter Name Role Phone Aaron Bryan MD Primary Care Provider [phone] Note from [facility],non-owned Affiliates and Associated Physician Practices is amultiple site organization consisting of ambulatory clinics and hospital sitesin [place], [place], [place] and [place]. This disclosure is being madepursuant to the Care Everywhere program and may not contain all information available regarding this patient. Last updated 18.[facility] [employer] Allergies No known active allergies Medications * Be aware that medications may not be up to date on this document. Alwaysverify current medications with the patient. * OMEPRAZOLE PO * Sertraline HCl (ZOLOFT PO) Active Problems No known active problems Social History Tobacco Use Types Packs/Day Years Used Date Smoking Tobacco: Never Smokeless Tobacco: Never Sex and Gender Information Value Date Recorded Sex Assigned at Not on file Gender Identity Not on file Sexual Orientation Not on file Last Filed Vital Signs Vital Sign Reading Time Taken Comments Blood Pressure 118/68 09/30/2019 9:51 AM THREAD WINDER Pulse 81 09/30/2019 9:51 AM THREAD WINDER Temperature 37.3 ??C (99.2 ??F) 09/30/2019 9:51 AM CS T Respiratory Rate 16 09/30/2019 9:51 AM THREAD WINDER Oxygen Saturation 97% 09/30/2019 9:51 AM THREAD WINDER Inhaled Oxygen Concentration - - Weight 111.1 kg (245 lb) 09/30/2019 9:51 AM THREAD WINDER Height 177.8 cm (5' 10 ) 09/30/2019 9:51 AM THREAD WINDER Body Mass Index 35.15 09/30/2019 9:51 AM THREAD WINDER Procedures * INFLUENZA A+B - POINT OF CARE (AMB)(Performed 09/30/2019) Performed for Acute nasopharyngitis (common cold) * STREP A SCREEN - POINT OF CARE (AMB) STL(Performed 09/30/2019) Performed for Acute tonsillitis, unspecified etiology * CULTURE RESPIRATORY UPPER(Performed 05/30/2018) Performed for Acute pharyngitis, unspecified etiology * STREP A SCREEN - POINT OF CARE (AMB) STL(Performed 05/30/2018) Performed for Acute pharyngitis, unspecified etiology * STREP A SCREEN - POINT OF CARE (AMB) STL(Performed 07/23/2017) Performed for Strep throat Results * STREP A SCREEN - POINT OF CARE (AMB) STL (09/30/2019) Only the most recent of3 resultswithin the time period is included. Pathologist [facility] Strep A Rapid POCT Negative Negative Strep A Internal Control Present Lot # [id number] Expiration Date [id number] Throat ENTIRE THROAT (SURFACE REGION OF NECK) / Unknown 09/30/2019 Shae Lockhart ETYMOLOGY TEACHER-WHEAT COMBINE DRIVER LAB - POINT O F CARE ORDERABLES * INFLUENZA A+B - POINT OF CARE (AMB) (09/30/2019) Pathologist [facility] Influenza A Antigen Rapid Negative Negative Influenza B Antigen Rapid Negative Negative Influenza Internal Control neg/pos NEGATIVE - POSITIVE Influenza Lot Number [id number] Influenza Expiration Date 07/01/2021 Other NASOPHARYNGEAL SWAB / Unknown 09/30/2019 Shae Lockhart ETYMOLOGY TEACHER-WHEAT COMBINE DRIVER LAB - POINT O F CARE ORDERABLES * CULTURE RESPIRATORY UPPER (05/30/2018 2:23 PM CDT) Pathologist [facility] Upper Respiratory Culture Final report [facility] ACCOUNT BILL Result 1 [facility] ACCOUNT BILL Comment:Routine respiratory dilip Microbiology ENTIRE THROAT (SURFACE REGION OF NECK) / Unknown 05/30/2018 2:23 PM CDT 05/31/2018 Narrative Resulting Agency Comment [facility] [address] ??[facility] [id number] Shae Moisés Lockhart ETYMOLOGY TEACHER-WHEAT COMBINE DRIVER LAB - MICROBI OLOGY ORDERABLES [facility] ACCOUNT BILL [address] [place] [address] Care Teams Car Top Bolter Relationship Specialty Start Date End Date Aaron Bryan MD PCP - General Internal Medicine 09/30/19
--- OUTSIDE RECORDS SUMMARY | 2024-09-01 12:56 | XMS_ITS | Referral Summary ---
Author Organization [facility] Address [address] [place] [address] Care Team Providers Care Financial Reporting Accountant Name Role Phone Aaron Bryan MD Primary Care Provider [phone] Source Comments [facility],non-owned Affiliates and Associated Physician Practices is amultiple site organization consisting of ambulatory clinics and hospital sitesin [place] and [place]. This disclosure is being madepursuant to the Care Everywhere program and may not contain all information available regarding this patient. Last updated 18.[facility] Allergies No known active allergies Medications * Be aware that medications may not be up to date on this document. Alwaysverify current medications with the patient. Medication Sig Dispensed Refills Start Date End Date Status OMEPRAZOLE PO Active Sertraline HCl (ZOLOFT PO) Active Active Problems No known active problems Social History Tobacco Use Types Packs/Day Years Used Date Smoking Tobacco: Never Smokeless Tobacco: Never Sex and Gender Information Value Date Recorded Sex Assigned at Not on file Gender Identity Not on file Sexual Orientation Not on file Last Filed Vital Signs Vital Sign Reading Time Taken Comments Blood Pressure 118/68 09/30/2019 9:51 AM FRONT END ARCHITECT Pulse 81 09/30/2019 9:51 AM FRONT END ARCHITECT Temperature 37.3 ??C (99.2 ??F) 09/30/2019 9:51 AM CS T Respiratory Rate 16 09/30/2019 9:51 AM FRONT END ARCHITECT Oxygen Saturation 97% 09/30/2019 9:51 AM FRONT END ARCHITECT Inhaled Oxygen Concentration - - Weight 111.1 kg (245 lb) 09/30/2019 9:51 AM FRONT END ARCHITECT Height 177.8 cm (5' 10 ) 09/30/2019 9:51 AM FRONT END ARCHITECT Body Mass Index 35.15 09/30/2019 9:51 AM FRONT END ARCHITECT Plan of Treatment Not on file Care Teams Financial Reporting Accountant Relationship Specialty Start Date End Date Araon Bryan MD PCP - General Internal Medicine 09/30/19
--- OUTSIDE RECORDS SUMMARY | 2024-09-01 12:56 | XMS_ITS | Clinical Summary ---
Author Organization [facility] Address [address] [place] [address] Phone Care Team Providers Care Earth Moving Technician Name Role Phone Unavailable Primary Care Provider Unavailabl e Allergies No known active allergies Medications omeprazole (PRILOSEC) 20 MG CAPSULE DELAYED RELEASE Take 20 mg by mouth daily. Active sertraline (ZOLOFT) 100 MG Tablet Take 100 mg by mouth daily. Active testosterone cypionate (DEPO-TESTOSTE VIKAS) 200 MG/ML SolutionIndica tions:every other week by Intramuscular route once. Active Misc. Devices MiscIndication s:Hypoxia, sleep related 1 night nocturnal oximetry ON PAP. Fax results 1 Each 9 Active Vilazodone HCl (VIIBRYD STARTER PACK) 10 & 20 MG Kit Take by mouth daily. Active hydrocortisone (ANUSOL-HC) 2.5 % Cream Apply daily. Apply to rectum as directed. 1 Tube 9 Active Additional Information Patient not taking.Reported on 06/23/2019 azelastine (ASTELIN) 0.1 % SolutionIndica tions:PNAR (perennial non-allergic rhinitis),Hype rtrophy of inferior nasal turbinate 2 Sprays by Nasal route 2 times daily. Use 2 sprays into each nostril every evening. May also use in the morning for congestion, runny nose, or sneezing. 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 Vitamin D insufficiency 08/13/2018 PNAR (perennial non-allergic rhinitis) 9 Hypertrophy of inferior nasal turbinate 08/13/19 19 DNS (deviated nasal septum) 08/13/2018 Anosmia 08/13/2018 Family History Medical History Relation Name Comments No Known Problems Father No Known Problems Mother Cancer Paternal Grandfather lung, b rain Relation Name Status Comments Father Alive Mother Alive Paternal Grandfather Social History Tobacco Use Types Packs/Day Years Used Date Smoking Tobacco: Never Smokeless Tobacco: Never Alcohol Use Standard Drinks/Week Comments No 0 (1 standard drink = 0.6 oz pur e alcohol) Sex and Gender Information Value Date Recorded Sex Assigned at Not on file Legal Sex Male 7:57 PM CDT Gender Identity Not on file Sexual Orientation Not on file Occupation Industry Job Start Date Job End Date [employer] Not on file Not on file Not on file Last Filed Vital Signs Vital Sign Reading Time Taken Comments Blood Pressure 112/78 06/23/2019 8:33 AM EXERCISE MANAGER Pulse 89 06/23/2019 8:33 AM EXERCISE MANAGER Temperature 37.3 ??C (99.1 ??F) 06/23/2019 8:33 AM CS T Respiratory Rate 16 06/23/2019 8:33 AM EXERCISE MANAGER Oxygen Saturation 96% 06/23/2019 8:33 AM EXERCISE MANAGER Inhaled Oxygen Concentration - - Weight 120.2 kg (265 lb) 06/23/2019 8:33 AM EXERCISE MANAGER Height 177.8 cm (5' 10 ) 06/23/2019 8:33 AM EXERCISE MANAGER Body Mass Index 38.02 06/23/2019 8:33 AM EXERCISE MANAGER Plan of Treatment Health Maintenance Due Date Last Done Comments Hepatitis C Virus (HCV) Screening 1980 TdaP Immunization 1980 Hepatitis B Immunization (1 of 3 - 19+ 3-dose series) 1999 Influenza Immunization (#1) 2024 SARS-COV-2 Immunization ( - 2023-25 season) 2024 08/07/2021, 10/14/2020 Respiratory Syncytial Virus (RSV) Immunization (Adult) (1 - 1-dose 75+ series) 2055 Meningococcal Immunization (ACWY) Aged Out No longer eligible b ased on patient's age to complete this topic Pneumococcal Immunization Combined Aged Out No longer eligible b ased on patient's age to complete this topic Rotavirus Immunization Aged Out No lo nger eligible based on patient's age to complete this topic
--- OUTSIDE RECORDS SUMMARY | 2024-09-01 12:56 | XMS_ITS | Clinical Summary ---
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 Family History Medical History Relation Name Comments Emphysema Brother Emphysema; Hypertension Mother Hypertension; Relation Name Status Comments Brother Mother Social History Tobacco Use Types Packs/Day Years Used Date Smoking Tobacco: Never Smokeless Tobacco: Never Alcohol Use Standard Drinks/Week Comments No 0 (1 standard drink = 0.6 oz pur e alcohol) Sex and Gender Information Value Date Recorded Sex Assigned at Not on file Legal Sex Male 5:15 PM SCREENING UNIT REGISTERED NURSE Gender Identity Not on file Sexual Orientation Not on file Obstetrics History Last Filed Vital Signs Vital Sign Reading [...] 03/06/2022 10:00 AM CDT Plan of Treatment Health Maintenance Due Date Last Done Comments Hepatitis C Screening 1980 DTaP/Tdap/Td Vaccine (1 - Tdap) 1991 Varicella Vaccines (1 of 2 - 13+ 2-dose series) 1993 Hepatitis B Screening 1998 Regular Well Visit/Exam 18-64 1998 Depression Screening 04/23/2018 04/23/2017, 01/27/2017 Influenza Vaccine (#1) 2024 09/03/2009 Colon Cancer Screening-Colonoscopy 07/07/2026 07/07/2016 Colon Cancer Screening-CT Colonography Discontinued 07/07/2016 Colon Cancer Screening-DNA Stool Discontinued 07/07/2016 Colon Cancer Screening-FIT Discontinued 07/07/2016 Colon Cancer Screening-Sigmoidoscopy Discontinued 07/07/2016 HPV Vaccines Aged Out No longer eligi ble based on patient's age to complete this topic Pneumococcal vaccine <65 Aged Out No longer eligible based on patient's age to complete this topic Medical Devices Implanted Type Area Seaman Officer Device Identifier Shelf Expiration Date Model / Serial / Lot Mesh Surgical Ventralight St Sepra Echo Ps Seprafilm Polypropylene Hydrogel [place] Od4.5 In Monofilament Lightweight Absorbable Low Profile Sterile Latex Free Ventral Hernia Repair - [id number] Implanted:Qty: 1 on 09/18/2017 by Emmett Zapata MD at [facility] Mesh N/A: Abdomen [employer]/C R Bard 06/06/2019 [id number] / / [id number] Procedures Procedure Name Priority Date/Time Associated Diagnosis Comments COLONOSCOPY Routine 07/07/2016 from Last 3 Months or Most Recently Relevant to Health Maintenance Results * COLONOSCOPY (07/07/2016) Colonoscopy Normal Comment:Mild diverticulosis w/o any inflammation, hemorrhoids. Historical Provider HEALTH MAINTENANCE Final Result from Last 3 Months or Most Recently Relevant to Health Maintenance Insurance [facility] CHOICE PLUS [facility] CHOICE PLUS [facility] CHOICE PLUS [facility] CHOICE PLUS Care Teams Kitchen Hand Relationship Specialty Start Date End Date Aaron Bryan MD [address] [place] [address] PCP - General 11/07/16
--- OUTSIDE RECORDS SUMMARY | 2024-09-01 12:56 | XMS_ITS | Clinical Summary ---
Author Organization [email or web address] Address [address] [place] [address] Care Team Providers Care Environmental Program Manager Name Role Phone Aaron Bryan MD Primary Care Provider [phone] Source Comments [email or web address],non-owned Affiliates and Associated Physician Practices is amultiple site organization consisting of ambulatory clinics and hospital sitesin [place] and [place]. This disclosure is being madepursuant to the Care Everywhere program and may not contain all information available regarding this patient. Last updated 18.[employer] [email or web address] Allergies No known active allergies Medications * [...] Comments Blood Pressure 118/68 09/30/2019 9:51 AM DOULA Pulse 81 09/30/2019 9:51 AM DOULA Temperature 37.3 ??C (99.2 ??F) 09/30/2019 9:51 AM CS T Respiratory Rate 16 09/30/2019 9:51 AM DOULA Oxygen Saturation 97% 09/30/2019 9:51 AM DOULA Inhaled Oxygen Concentration - - Weight 111.1 kg (245 lb) 09/30/2019 9:51 AM DOULA Height 177.8 cm (5' 10 ) 09/30/2019 9:51 AM DOULA Body Mass Index 35.15 09/30/2019 9:51 AM DOULA Plan of Treatment Health Maintenance Due Date Last Done Comments LIPID TESTING 1980 HIV SCREENING 1995 HEPATITIS C SCREENING 08/19/1998 DTAP/TDAP/TD VACCINES (1 - Tdap) 1999 HEPATITIS B VACCINE (1 of 3 - 19+ 3-dose series) 1999 COVID-19 VACCINE (1 - 2023-2 5 season) 2024 INFLUENZA VACCINE (#1) 2024 09/03/2009 DEPRESSION SCREENING 08/10/2024 ZOSTER VACCINE (1 of 2) 2030 HIB VACCINE Aged Out No longer eligi ble based on patient's age to complete this topic HPV VACCINE Aged Out No longer eligi ble based on patient's age to complete this topic MENINGOCOCCAL (Group B) VACCINE Aged Out No longer eligible based on patient's age to complete this topic MENINGOCOCCAL VACCINE Aged Out No polo jeremi eligible based on patient's age to complete this topic PNEUMOCOCCAL VACCINE Aged Out No long er eligible based on patient's age to complete this topic Care Teams Environmental Program Manager Relationship Specialty Start Date End Date Aaron Bryan MD PCP - General Internal Medicine 09/30/19
== END 2024-08-31 12:05 | disposition home or self-care (01) | DRG 392 ==
LOC: ANHED 15:27 → ANH3MEDSUR 17:47
PROVIDERS: Internal Medicine Gastroenterology; Nurse Practitioner Family; Nurse Practitioner Gerontology; Physician Assistant; Admitting Provider Hospitalist; Emergency Provider Registered Nurse; PCP Nurse Practitioner Adult Health; Visit Provider Nurse Practitioner Family
DX: K52.9 Noninfective gastroenteritis and colitis, unspecified (principal); K56.7 Ileus, unspecified; E86.0 Dehydration; K21.9 Gastro-esophageal reflux disease without esophagitis; K31.84 Gastroparesis; K43.9 Ventral hernia without obstruction or gangrene; K64.9 Unspecified hemorrhoids; E11.9 Type 2 diabetes mellitus without complications; E78.5 Hyperlipidemia, unspecified; M54.2 Cervicalgia; M79.2 Neuralgia and neuritis, unspecified; G47.30 Sleep apnea, unspecified; F41.9 Anxiety disorder, unspecified; Z20.822 Contact with and (suspected) exposure to COVID-19
CPT/HCPCS: 36415; 74018; 74019; 74177; 80048; 80053; 81001; 83605; 83690; 83735; 85014; 85018; 85025; 87040; 87045; 87427; 87449; 87637; 96361; 96374; 96375; 96376; 99285; A9270; G0378; J1171; J1200; J1885; J2060; J2405; J2470; J2543; J2765; J7030; J7042; Q9967